=== PATIENT | female | born 1980 | race Caucasian/White ===

== ENCOUNTER → 2017-12-26 15:49 | Outpatient (CLI) | payer OTHER, SELFPAY | PROVIDERS: Family Provider Nurse Practitioner; PCP Internal Medicine; Visit Provider Internal Medicine | DX: B35.1 Tinea unguium (principal) | CPT/HCPCS: 87077; 87102 ==

== ENCOUNTER → 2017-12-29 09:35 | Outpatient (CLI) | payer OTHER, SELFPAY ==
[2017-12-29 10:27] LABS: Add Manual Diff / Slide Review NO; Basophils Percent Auto 0.4 % (0-2); Eosinophils Percent Auto 1.9 % (2-4); Hematocrit 39.3 % (36-46); Hemoglobin 13.4 g/dL (12.0-16.0); Lymphocytes Percent Auto 41.5 % (25-40); Mean Corpuscular HGB Conc 34.2 % (30-36); Mean Corpuscular Volume 96.4 fL (80-100); Monocytes Percent Auto 6.4 % (3-14); Neutrophils Absolute Auto 2500 /uL (3000-5900); Neutrophils Percent Auto 49.8 % (50-75); Platelet Count 236 X10^3/uL (150-400); Red Blood Cell Count 4.07 X10^6/uL (4.0-5.2); Red Cell Distribution Width 12.8 % (11.6-14.8)
[2017-12-29 10:47] LABS: Alanine Aminotransferase 26 IU/L (9-52); Albumin 4.5 g/dL (3.5-5.0); Albumin Globulin Ratio 1.7 (1.0-2.8); Alkaline Phosphatase 44 U/L (38-126); Aspartate Aminotransferase 20 IU/L (14-36); BUN Creatinine Ratio 21.7 (6-22); Bilirubin Total 0.5 mg/dL (0.2-1.3); Blood Urea Nitrogen 13 mg/dL (7-17); Calcium 9.7 mg/dL (8.4-10.2); Carbon Dioxide 29 mmol/L (22-32); Chloride 106 mmol/L (98-107); Cholesterol 209 mg/dL (140-199); Estimated Glomerular Filt Rate > 60.0 mL/min (>60); Globulin 2.7 g/dL (1.7-4.1); Glucose 83 mg/dL (70-100); HDL Cholesterol 75 mg/dL (40-60); HEMOLYSIS < 15 (0-50); LDL Cholesterol Calculated 120 mg/dL (<100); Potassium 4.4 mmol/L (3.4-5.1); Sodium 143 mmol/L (137-145); Total Protein 7.2 g/dL (6.3-8.2); Triglycerides 68 mg/dL (35-150)
[2017-12-29 11:13] LABS: Thyroid Stimulating Hormone 0.66 uIU/mL (0.47-4.68)
== END ==
PROVIDERS: PCP Internal Medicine; Visit Provider Internal Medicine
DX: F41.9 Anxiety disorder, unspecified (principal); R25.1 Tremor, unspecified; Z82.49 Family history of ischemic heart disease and other diseases of the circulatory system
CPT/HCPCS: 36415; 80053; 80061; 84443; 85025

== ENCOUNTER → 2018-01-16 13:44 | Outpatient (REF) | payer OTHER, SELFPAY | LOC: LAB 13:44 | PROVIDERS: Family Provider Nurse Practitioner; PCP Internal Medicine; Visit Provider Family Medicine | DX: Z53.9 Procedure and treatment not carried out, unspecified reason (principal) ==

== ENCOUNTER → 2018-01-22 13:43 | Outpatient (REF) | payer OTHER, SELFPAY | LOC: LAB 13:43 | PROVIDERS: Family Provider Nurse Practitioner; PCP Internal Medicine; Visit Provider Internal Medicine | DX: B49 Unspecified mycosis (principal) ==

== ENCOUNTER → 2018-04-05 11:42 | Outpatient (CLI) | payer OTHER, SELFPAY ==
[2018-04-05 12:51] LABS: Alanine Aminotransferase 25 IU/L (9-52); Albumin 4.5 g/dL (3.5-5.0); Albumin Globulin Ratio 1.7 (1.0-2.8); Alkaline Phosphatase 45 U/L (38-126); Aspartate Aminotransferase 20 IU/L (14-36); Bilirubin Total 0.5 mg/dL (0.2-1.3); Bilirubin Unconjugated 0.4 mg/dL (0.0-1.1); Globulin 2.6 g/dL (1.7-4.1); HEMOLYSIS < 15 (0-50); Total Protein 7.1 g/dL (6.3-8.2)
== END ==
PROVIDERS: PCP Internal Medicine; Visit Provider Internal Medicine
DX: Z79.899 Other long term (current) drug therapy (principal)
CPT/HCPCS: 36415; 80076

== ENCOUNTER → 2018-05-10 12:51 | Outpatient (CLI) | payer OTHER, SELFPAY ==
[2018-05-10 14:01] LABS: Alanine Aminotransferase 26 IU/L (9-52); Albumin 4.5 g/dL (3.5-5.0); Albumin Globulin Ratio 1.6 (1.0-2.8); Alkaline Phosphatase 52 U/L (38-126); Aspartate Aminotransferase 19 IU/L (14-36); Bilirubin Total 0.3 mg/dL (0.2-1.3); Bilirubin Unconjugated 0.1 mg/dL (0.0-1.1); Globulin 2.8 g/dL (1.7-4.1); HEMOLYSIS < 15 (0-50); Total Protein 7.3 g/dL (6.3-8.2)
== END ==
PROVIDERS: PCP Internal Medicine; Visit Provider Internal Medicine
DX: Z79.899 Other long term (current) drug therapy (principal)
CPT/HCPCS: 36415; 80076

== ENCOUNTER → 2019-07-20 09:03 | Outpatient (CLI) | payer OTHER, SELFPAY ==
[2019-07-22 14:36] LABS: COVID19 Sendout Not Detected (Not Detected)
== END ==
PROVIDERS: PCP Student in an Organized Health Care Education/Training Program; Visit Provider Physician Assistant
DX: R05 Cough (principal)
CPT/HCPCS: 87635

== ENCOUNTER → 2020-11-24 07:39 | Outpatient (CLI) | payer OTHER, MEDICAID, SELFPAY ==
--- NOTE | 2020-11-24 07:40 | DI.NM.S_ITS ---
PROCEDURE: NM GASTRIC EMPTYING STUDY RADIOPHARMACEUTICAL: 1 mCi Tc-99m sulfur colloid in an egg sandwich. INDICATIONS: Ongoing vomiting with food TECHNIQUE: A Tc-99m labeled sulfur colloid labeled egg sandwich or oatmeal was served to the patient. Anterior and posterior planar images of the abdomen were obtained at 0 minutes and 30 minutes, then at hourly intervals up to 4 hours. The patient was upright and ambulating during the interval. COMPARISON: None. FINDINGS: The stomach has normal size, morphology, and position. There is normal emptying of solid gastric contents from the stomach by visual inspection. No gastroesophageal reflux is visualized. The percentage of tracer retained at specific time points are as follows: Time point Percent gastric retention Normal range 30 minutes 71.2% 70% or more 1 hour 41.5% 30% to 90% 2 hours 14% 60% or less 3 hours 2.4% 30% or less 4 hours - 10% or less IMPRESSION: Normal gastric emptying study. Dictated by: Katerine Eckert M.D. on 11/24/2020 at 13:15 Approved by: Katerine Eckert M.D. on 11/25/2020 at 17:51
== END ==
PROVIDERS: PCP Student in an Organized Health Care Education/Training Program; Referring Provider Student in an Organized Health Care Education/Training Program; Visit Provider Student in an Organized Health Care Education/Training Program
DX: R11.10 Vomiting, unspecified (principal)
CPT/HCPCS: 78264; A9541

== ENCOUNTER → 2020-11-25 07:51 | Outpatient (CLI) | payer OTHER, MEDICAID, SELFPAY ==
[2020-11-25 09:02] LABS: Alanine Aminotransferase 45 IU/L (<35); Albumin 4.3 g/dL (3.5-5.0); Albumin Globulin Ratio 1.7 (1.0-2.8); Alkaline Phosphatase 53 U/L (38-126); Aspartate Aminotransferase 55 IU/L (14-36); Bilirubin Total 0.2 mg/dL (0.2-1.3); Blood Urea Nitrogen 7 mg/dL (7-17); Carbon Dioxide 27 mmol/L (22-32); Chloride 109 mmol/L (98-107); Estimated Glomerular Filt Rate > 60.0 mL/min (>60); Globulin 2.6 g/dL (1.7-4.1); Glucose 79 mg/dL (70-100); HEMOLYSIS < 15 (0-50); Potassium 4.4 mmol/L (3.4-5.1); Sodium 139 mmol/L (137-145); Total Protein 6.9 g/dL (6.3-8.2)
[2020-11-25 09:26] LABS: Cortisol AM (Before 10AM) 9.41 ug/dL (4.46-22.7)
[2020-11-25 09:27] LABS: TSH w/ Reflex to FT4 0.79 uIU/mL (0.47-4.68)
== END ==
PROVIDERS: PCP Student in an Organized Health Care Education/Training Program; Referring Provider Student in an Organized Health Care Education/Training Program; Visit Provider Student in an Organized Health Care Education/Training Program
DX: R11.10 Vomiting, unspecified (principal)
CPT/HCPCS: 36415; 80053; 82533; 84443

== ENCOUNTER → 2020-12-04 11:02 | Outpatient (CLI) | payer OTHER, MEDICAID, SELFPAY ==
--- NOTE | 2020-12-04 | DI.RAD.S_ITS ---
PROCEDURE: FL UPPER GI SMALL BOWEL INDICATIONS: VOMITING COMPARISON: None. FINDINGS: KUB: Preprocedural roll repairer film shows a normal bowel gas pattern. No suspicious abdominal calcifications. Visualized solid organ contours appear normal in size. No suspicious bony abnormalities. Esophagus: Air-contrast views demonstrate a normal mucosal pattern. On single-contrast views, there is normal peristalsis. No fixed strictures, extrinsic mass effects, or diverticula. No hiatal hernias or elicited gastroesophageal reflux. Stomach: The gastric lumen is normally distensible, and has normal rugal fold thickness. No mucosal masses or ulcers. The pylorus and duodenal bulb have a normal morphology. Small bowel: Duodenal folds appear normal in thickness. There is normal transit time of barium through the small intestine. Small bowel loops appear normal in caliber throughout. Jejunal and ileal folds are smooth and normal in thickness. No strictures, intraluminal masses, or extrinsic mass effects. The terminal ileum is identified and appears normal. Contrast material reaches the colon by the 25 minutes time point. IMPRESSION: Normal examination as above. Dictated by: Vito Farooq M.D. on 12/07/2020 at 11:56 Approved by: Vito Farooq M.D. on 12/07/2020 at 11:58
[2020-12-04 12:26] LABS: Lipase 29 U/L (23-300)
[2020-12-04 12:32] LABS: Erythrocyte Sedimentation Rate 9 MM/HR (0-20)
[2020-12-05 06:11] LABS: HBsAg Screen Negative (Negative); Hepatitis A Antibody IgM Negative (Negative); Hepatitis B Core Antibody IgM Negative (Negative); Hepatitis C Antibody <0.1 s/co ratio (0.0-0.9)
== END ==
PROVIDERS: PCP Student in an Organized Health Care Education/Training Program; Referring Provider Student in an Organized Health Care Education/Training Program; Visit Provider Student in an Organized Health Care Education/Training Program
DX: R11.15 Cyclical vomiting syndrome unrelated to migraine (principal); R79.89 Other specified abnormal findings of blood chemistry
CPT/HCPCS: 36415; 74240; 74248; 80074; 83690; 85651

== ENCOUNTER 2021-02-28 08:16 | Emergency (ER) | payer OTHER, MEDICAID, SELFPAY ==
[2021-02-28 08:41] VITALS: BP 117/69; PULSE 78; RESP 18; TEMP 36.6; O2SAT 100; BMI 24.7
--- NOTE | 2021-02-28 08:47 | ED_ITS ---
HPI - Abdominal Pain General Chief Complaint: Abdominal Pain Stated Complaint: Lower Rt abd pain Time Seen by Provider: 02/28/21 08:36 Source: patient Mode of arrival: Ambulatory Limitations: no limitations History of Present Illness HPI narrative: Patient is a 40-year-old female who has no past medical history has been having some ongoing stomach issues for a while and being worked up as an outpatient. Today she presents with right lower quadrant pain off and on for about 1 month. She says it is really only which with intercourse. She has been previously been abstinent and just started having intercourse within the last 1 month. She says every time it is painful in her right lower quadrant this morning it was extremely painful and afterward she threw. The pain has subsided now. She has also had some random intermittent mild spotting. She has a history of a tubal ligation is not currently using control. She has no vaginal discharge. She had a recent Pap smear and cultures taken by primary care. She denies any fever or chills.. Related Data Home Medications Medication Instructions Recorded Confirmed pantoprazole 40 mg tablet,delayed ea PO 02/26/21 02/26/21 release Allergies Allergy/AdvReac Type Severity Reaction Status Date / Time No Known Drug Allergies Allergy Verified 02/26/21 08:51 Review of Systems Review of Systems Narrative: GENERAL: Denies chills, fatigue, malaise, fever, sweats, travel HEENT: Denies sinus pain, ear pain, sore throat, difficulty swallowing, neck pain RESPIRATORY: Denies dyspnea, cough, wheezing, hemoptysis, sputum. CARDIOVASCULAR: Denies chest pain, palpitations, orthopnea, edema GASTROINTESTINAL: See HPI : Denies dysuria, frequency, incontinence, hematuria, urinary retention, flank pain. MUSCULOSKELETAL: Denies weakness, joint pain, or bony pain SKIN: No rash, no erythema, no pruritus NEUROLOGIC: Denies weakness, dizziness, headache, numbness, change in speech, confusion PSYCHIATRIC: No concerning psychosocial issues. 12 point review of systems is negative except for those stated above and HPI Patient History Medical History (Updated 02/28/21 @ 11:17 by Elizabeth Burrows DO) Breast pain Cervical cancer screening Screening examination for STD (sexually transmitted disease) Screening for HPV (human papillomavirus) Surgical History Anesthesia Status post dilation and curettage (~1997) Status post tubal ligation (01/26/09) Social History Smoking Status: Current every day smoker Smoking Status: Current every day smoker tobacco type: cigarettes alcohol intake frequency: holidays/special occasions only Substance Use Type: marijuana Exam Initial Vital Signs Initial Vital Signs: Vital Signs Temperature 97.9 F 02/28/21 08:41 Pulse Rate 78 02/28/21 08:41 Respiratory Rate 18 02/28/21 08:41 Blood Pressure 117/69 02/28/21 08:41 Pulse Oximetry 100 02/28/21 08:41 GENERAL: Well-appearing, well-nourished and in no acute distress. HEENT: Head atraumatic,EOMI, pupils reactive, face symmetric, moist mucous membranes CARDIOVASCULAR: Regular rate and rhythm without murmurs, rubs or gallops. RESPIRATORY: Breath sounds equal bilaterally, no wheezes rales or rhonchi. ABDOMEN: Soft, mild right suprapubic pain no rebound tenderness. Left-sided pain. Normoactive bowel sounds all 4 quadrants. No guarding or rebound. : No CVA tenderness EXTREMITIES: Normal range of motion, no clubbing or edema. Neurovascularly intact NEUROLOGICAL: Alert and oriented x4.Normal gait and speech. SKIN: Warm, dry, no laceration, no petechiae, no rashes or lesions. Course Orders Ordered: ED Orders 02/28/21 09:38 Complete Blood Count AUTO DIFF Stat Comprehensive Metabolic Panel Stat Lipase Stat Vital Signs Vital signs: Vital Signs - 8 hr 02/28/21 11:25 Pulse Rate 56 L Respiratory Rate 16 Blood Pressure 98/56 L Pulse Oximetry 99 MDM - Abdominal Pain Lab Data Result diagrams: 02/28/21 09:38 02/28/21 09:38 Labs: Lab Results 02/28/21 02/28/21 Range/Units 09:38 09:38 WBC 6.1 (4.5-11.0) X10^3/uL RBC 4.22 (4.0-5.2) X10^6/uL Hgb 13.4 (12.0-16.0) g/dL Hct 40.1 (36-46) % MCV 95.1 (80-100) fL MCH 31.8 (26-34) PG MCHC 33.4 (30-36) % RDW 13.8 (11.6-14.8) % Plt Count 192 (150-400) X10^3/uL Neut % (Auto) 58.9 (50-75) % Lymph % (Auto) 33.1 (25-40) % [place] % (Auto) 6.8 (3-14) % Eos % (Auto) 0.8 L (2-4) % Baso % (Auto) 0.4 (0-2) % Neut # (Auto) 3600 (8321-3759) /uL Lymph # (Auto) 2000 (5056-2951) /uL [place] # (Auto) 400 (0-900) /uL Eos # (Auto) 0 (0-450) /uL Baso # (Auto) 0 (0-100) /uL Sodium 139 (137-145) mmol/L Potassium 4.4 (3.4-5.1) mmol/L Chloride 106 (98-107) mmol/L Carbon Dioxide 26 (22-32) mmol/L BUN 9 (7-17) mg/dL Creatinine 0.64 (0.52-1.04) mg/dL Estimated GFR > 60.0 (>60) mL/min BUN/Creatinine Ratio 14.1 (6-22) Glucose 86 (70-100) mg/dL Calcium 9.3 (8.4-10.2) mg/dL Total Bilirubin 0.5 (0.2-1.3) mg/dL AST 33 (14-36) IU/L ALT 17 (<35) IU/L Alkaline Phosphatase 49 (38-126) U/L Total Protein 6.9 (6.3-8.2) g/dL Albumin 4.3 (3.5-5.0) g/dL Globulin 2.6 (1.7-4.1) g/dL Albumin/Globulin Ratio 1.7 (1.0-2.8) Lipase 44 (23-300) U/L Point of care testing: Point of Care Testing Test Results Negative Urine Dip Bedside Urine Glucose Negative Bedside Urine Bilirubin - Negative Bedside Urine Ketone - Negative Urine Specific [place] 1.015 Bedside Urine Occult Blood - Negative Bedside Urine pH 7.5 Bedside Urine Protein +/- 15 Bedside Urine Urobilinogen - Negative Bedside Urine Nitrite - Negative Bedside Urine Leukocytes - Negative Esterase Imaging Data CT scan - abdomen/pelvis: Radiologist's Impression: PROCEDURE:? CT ABDOMEN PELVIS W CON ? INDICATIONS:? right sided pain ? TECHNIQUE:? After the administration of oral and IV contrast, axial sections were acquired from the lung bases to the pubic symphysis.? Coronal and sagittal reformats were performed.? For radiation dose reduction, the following was used:? automated exposure control, adjustment of mA and/or kV according to patient size. ? COMPARISON:? None. ? FINDINGS:? Image quality:? Excellent.? ? Lung bases:? There is mild left basilar atelectasis.? ? Heart:? No significant findings. ? ? ABDOMEN: Liver:? Unremarkable.? ? Gallbladder:? Unremarkable.? ? Biliary ducts:? Unremarkable.? ? Pancreas:? Unremarkable.? ? Spleen:? Unremarkable.? ? Adrenal Glands:? Unremarkable.? ? Kidneys and Ureters:? Unremarkable.? ? ? Stomach and Bowel:? Stomach, small bowel loops, and colon are normal in caliber and wall thickness.? The appendix is normal in appearance.? Peritoneum:? There is a small amount of free fluid in the pelvis which appears within physiologic limits.? No free air.? ? Ventral Wall: ? No hernia.? Abdominal Nodes:? No retroperitoneal or mesenteric adenopathy by size criteria.? Vessels:? Aorta and inferior vena cava are normal in size.? ? PELVIS: Pelvic Organs:? There is a peripherally enhancing cyst in the left ovary measuring to 1.6 cm. Bladder:? Unremarkable.? ? Pelvic Nodes: No enlarged lymph nodes.? Miscellaneous:? There are prominent left parametrial vessels.? No inguinal hernias are seen. ? ? ? Bones:? Unremarkable.? IMPRESSION:? ? 1. No evidence of appendicitis. ? 2. No definite acute intra-abdominal abnormality to correlate with patient's right lower quadrant pain. ? 3. Prominent left parametrial vessels of indeterminate clinical significance.? The findings may reflect pelvic congestion syndrome in the appropriate clinical context. ? 4. Peripherally enhancing left ovarian cyst likely representing a corpus luteal cyst.? ? ? Dictated by: Aamir Diallo M.D. on 02/28/2021 at 10:57 ?? US - [employer]CH[employer]: Radiologist's Impression: PROCEDURE:? US PELVIC COMPLETE ? INDICATIONS:? RIGHT PELVIC PAIN WITH INTERCOURSE ? TECHNIQUE:? Real-time scanning was performed of the pelvic organs, with image documentation.? Additional endovaginal scanning was necessary due to incomplete visualization of the adnexal and endometrial structures by transabdominal scanning.? ? COMPARISON:? None. ? FINDINGS:? ?? Uterus:? Uterus is normal in size at 8.7 x 5.8 cm.? The liver echotexture is within normal level.? The endometrium measures 10 mm in combined thickness.? ? Ovaries:? The right ovary measures 2.7 x 1 point cm. The left ovary measures 2.4 x 1.4 cm and demonstrates a 1.6 x 1.1 x 1 3 cm solid-appearing nodule with peripheral vascularity. ? The ovaries otherwise have a normal sonographic appearance.? No adnexal masses are seen. Normal appearing arterial waveforms are confirmed to each ovary.? ? Other: ? No pathologic free abdominal or pelvic fluid. ? ? IMPRESSION:? A cause of RIGHT-sided pelvic pain is not seen. ? Negative for ovarian torsion.? ? Potential pelvic is hemorrhagic cyst LEFT ovary. If it would be clinically appropriate, a followup pelvic ultrasound could be considered in 6 weeks to assure resolution/ improvement.? Dictated by: Kwame Will M.D. on 02/28/2021 at 9:13 ? ? Approved by: Kwame Will M.D. on 02/28/2021 at 9:15 ? [facility] Narrative Medical decision making narrative: Patient is having ongoing right-sided abdominal pain only with intercourse and intermittent very light spotting. She has already had a pelvic exam STD testing. She denies any heavy menstrual periods. On ultrasound and CT scan do not show any cause of pain for the right side but do show a corpus luteum cyst on the left. Recommend outpatient repeat ultrasound in about 6 weeks Discharge Plan Departure Patient Disposition: Home Clinical Impression: Left ovarian cyst Instructions: DI for Ovarian Cyst Activity Restrictions/Additional Instructions: *You have been diagnosed with left ovarian cyst *What to do: At this time no cause of the right sided pain. The of a small left ovarian cyst. Recommend outpatient repeat ultrasound in about 6-8 weeks. May still require more outpatient testing. Workup in the emergency department is overall reassuring *Continue to take medications as directed Motrin 800 mg every 8 hours if needed for pain *Follow up with your primary care provider in 2-3 days *Return to ER if you should have increasing pain, heavy vaginal bleeding more than 2 pads in 1 hour, persistent vomiting or any new, worsening or concerning symptoms Prescriptions: No Action pantoprazole 40 mg tablet,delayed release (DR/EC) PO RF: 0 Referrals: Jonathan Tony MD [Primary Care Provider] -
--- NOTE | 2021-02-28 08:53 | DI.US.S_ITS ---
PROCEDURE: US PELVIC COMPLETE INDICATIONS: RIGHT PELVIC PAIN WITH INTERCOURSE TECHNIQUE: Real-time scanning was performed of the pelvic organs, with image documentation. Additional endovaginal scanning was necessary due to incomplete visualization of the adnexal and endometrial structures by transabdominal scanning. COMPARISON: None. FINDINGS: Uterus: Uterus is normal in size at 8.7 x 5.8 cm. The liver echotexture is within normal level. The endometrium measures 10 mm in combined thickness. Ovaries: The right ovary measures 2.7 x 1 point cm. The left ovary measures 2.4 x 1.4 cm and demonstrates a 1.6 x 1.1 x 1 3 cm solid-appearing nodule with peripheral vascularity. The ovaries otherwise have a normal sonographic appearance. No adnexal masses are seen. Normal appearing arterial waveforms are confirmed to each ovary. Other: No pathologic free abdominal or pelvic fluid. IMPRESSION: A cause of RIGHT-sided pelvic pain is not seen. Negative for ovarian torsion. Potential pelvic is hemorrhagic cyst LEFT ovary. If it would be clinically appropriate, a followup pelvic ultrasound could be considered in 6 weeks to assure resolution/ improvement. Dictated by: Kwame Will M.D. on 02/28/2021 at 9:13 Approved by: Kwame Will M.D. on 02/28/2021 at 9:15
--- NOTE | 2021-02-28 08:53 | DI.CT.S_ITS ---
PROCEDURE: CT ABDOMEN PELVIS W CON INDICATIONS: right sided pain TECHNIQUE: After the administration of oral and IV contrast, axial sections were acquired from the lung bases to the pubic symphysis. Coronal and sagittal reformats were performed. For radiation dose reduction, the following was used: automated exposure control, adjustment of mA and/or kV according to patient size. COMPARISON: None. FINDINGS: Image quality: Excellent. Lung bases: There is mild left basilar atelectasis. Heart: No significant findings. ABDOMEN: Liver: Unremarkable. Gallbladder: Unremarkable. Biliary ducts: Unremarkable. Pancreas: Unremarkable. Spleen: Unremarkable. Adrenal Glands: Unremarkable. Kidneys and Ureters: Unremarkable. Stomach and Bowel: Stomach, small bowel loops, and colon are normal in caliber and wall thickness. The appendix is normal in appearance. Peritoneum: There is a small amount of free fluid in the pelvis which appears within physiologic limits. No free air. Ventral Wall: No hernia. Abdominal Nodes: No retroperitoneal or mesenteric adenopathy by size criteria. Vessels: Aorta and inferior vena cava are normal in size. PELVIS: Pelvic Organs: There is a peripherally enhancing cyst in the left ovary measuring to 1.6 cm. Bladder: Unremarkable. Pelvic Nodes: No enlarged lymph nodes. Miscellaneous: There are prominent left parametrial vessels. No inguinal hernias are seen. Bones: Unremarkable. IMPRESSION: 1. No evidence of appendicitis. 2. No definite acute intra-abdominal abnormality to correlate with patient's right lower quadrant pain. 3. Prominent left parametrial vessels of indeterminate clinical significance. The findings may reflect pelvic congestion syndrome in the appropriate clinical context. 4. Peripherally enhancing left ovarian cyst likely representing a corpus luteal cyst. Dictated by: Aamir Diallo M.D. on 02/28/2021 at 10:57 Approved by: Aamir Diallo M.D. on 02/28/2021 at 11:05
[2021-02-28 09:47] LABS: Add Manual Diff / Slide Review NO; Basophils Absolute Auto 0 /uL (0-100); Basophils Percent Auto 0.4 % (0-2); Eosinophils Absolute Auto 0 /uL (0-450); Eosinophils Percent Auto 0.8 % (2-4); Hematocrit 40.1 % (36-46); Hemoglobin 13.4 g/dL (12.0-16.0); Lymphocytes Absolute Auto 2000 /uL (1100-4500); Lymphocytes Percent Auto 33.1 % (25-40); Mean Corpuscular HGB Conc 33.4 % (30-36); Mean Corpuscular Hemoglobin 31.8 PG (26-34); Mean Corpuscular Volume 95.1 fL (80-100); Monocytes Absolute Auto 400 /uL (0-900); Monocytes Percent Auto 6.8 % (3-14); Neutrophils Absolute Auto 3600 /uL (1500-7000); Neutrophils Percent Auto 58.9 % (50-75); Platelet Count 192 X10^3/uL (150-400); Red Blood Cell Count 4.22 X10^6/uL (4.0-5.2); Red Cell Distribution Width 13.8 % (11.6-14.8); White Blood Cell Count 6.1 X10^3/uL (4.5-11.0)
[2021-02-28 10:17] LABS: Alanine Aminotransferase 17 IU/L (<35); Albumin 4.3 g/dL (3.5-5.0); Albumin Globulin Ratio 1.7 (1.0-2.8); Alkaline Phosphatase 49 U/L (38-126); Aspartate Aminotransferase 33 IU/L (14-36); BUN Creatinine Ratio 14.1 (6-22); Bilirubin Total 0.5 mg/dL (0.2-1.3); Blood Urea Nitrogen 9 mg/dL (7-17); Calcium 9.3 mg/dL (8.4-10.2); Carbon Dioxide 26 mmol/L (22-32); Chloride 106 mmol/L (98-107); Estimated Glomerular Filt Rate > 60.0 mL/min (>60); Globulin 2.6 g/dL (1.7-4.1); Glucose 86 mg/dL (70-100); HEMOLYSIS < 15 (0-50); Lipase 44 U/L (23-300); Potassium 4.4 mmol/L (3.4-5.1); Sodium 139 mmol/L (137-145); Total Protein 6.9 g/dL (6.3-8.2)
[2021-02-28 11:25] VITALS: BP 98/56; PULSE 56; RESP 16; O2SAT 99
== END 2021-02-28 11:25 | disposition home or self-care (01) ==
PROVIDERS: Emergency Provider Emergency Medicine; PCP Student in an Organized Health Care Education/Training Program
DX: N83.202 Unspecified ovarian cyst, left side (principal); R10.31 Right lower quadrant pain
CPT/HCPCS: 36415; 74177; 76830; 76856; 80053; 81003; 81025; 83690; 85025; 99282; 99284

== ENCOUNTER → 2021-03-10 09:51 | Outpatient (CLI) | payer OTHER, MEDICAID, SELFPAY ==
[2021-03-11 04:10] LABS: HBsAg Screen Negative (Negative); HSV 2 IGG AB < 0.91 index (0.00-0.90); HSV1IGG 4.96 index (0.00-0.90); Hepatitis A Antibody IgM Negative (Negative); Hepatitis B Core Antibody IgM Negative (Negative); Hepatitis C Antibody <0.1 s/co ratio (0.0-0.9)
[2021-03-11 08:30] LABS: RPR Screen Non Reactive (Non Reactive)
[2021-03-11 17:40] LABS: HIV 1 & 2 Ab/Ag 4th Gen Combo NEGATIVE (NEGATIVE)
[2021-03-11 19:52] LABS: HSV I/II IgM 1.26 Ratio (0.00-0.90)
== END ==
PROVIDERS: PCP Student in an Organized Health Care Education/Training Program; Referring Provider Registered Nurse; Visit Provider Registered Nurse
DX: A64 Unspecified sexually transmitted disease (principal)
CPT/HCPCS: 36415; 80074; 86592; 86694; 86695; 86696; 87389

== ENCOUNTER → 2021-04-19 07:21 | Outpatient (CLI) | payer OTHER, MEDICAID, SELFPAY ==
--- NOTE | 2021-04-19 07:22 | DI.US.S_ITS ---
PROCEDURE: US PELVIC COMPLETE INDICATIONS: FOLLOW-UP LEFT OVARIAN CYST TECHNIQUE: Real-time scanning was performed of the pelvic organs, with image documentation. Additional endovaginal scanning was necessary due to incomplete visualization of the adnexal and endometrial structures by transabdominal scanning. COMPARISON: [facility], [place], US PELVIC COMPLETE, 02/28/2021, 9:19. FINDINGS: Uterus: Uterus is anterior to and normal in size at 4.4 x 6.1 x 8.0 cm. The myometrium is homogeneous. The endometrium measures 10 mm combined thickness. Ovaries: The right ovary measures 2.2 x 2.3 x 4.0 cm. The left ovary measures 1.9 x 2.5 x 2.7 cm. Previously seen suspected hemorrhagic cyst in the left ovary has resolved. There is a new complex vascular cyst in the right ovary measuring 1.8 x 2.0 x 2.6 cm. Other: No pathologic free abdominal or pelvic fluid. IMPRESSION: Resolution of previously seen left ovarian cyst. New complex right ovarian cyst with peripheral vascularity is likely a hemorrhagic cyst also. We strive to produce accurate, complete, and clear reports of imaging services. To assist us in improving patient care, this report was composed using standard report templates and voice recognition software. Therefore, it may contain abnormal punctuation, insertions and/or omissions. Occasional wrong-word or sound-alike substitutions may occur. Though we review the report and make efforts to correct it, we do recommend that the report be read carefully in proper context to recognize any text inaccuracies. Dictated by: Brian Arana M.D. on 04/19/2021 at 8:13 Approved by: Brian Arana M.D. on 04/19/2021 at 8:18
== END ==
PROVIDERS: PCP Student in an Organized Health Care Education/Training Program; Referring Provider Student in an Organized Health Care Education/Training Program; Visit Provider Student in an Organized Health Care Education/Training Program
DX: N83.202 Unspecified ovarian cyst, left side (principal); N83.291 Other ovarian cyst, right side
CPT/HCPCS: 76856

== ENCOUNTER 2022-01-19 17:54 | Emergency (ER) | payer OTHER, MEDICAID, SELFPAY ==
[2022-01-19 18:03] VITALS: BP 117/70; PULSE 70; RESP 18; TEMP 36.8; O2SAT 99; BMI 24.7
[2022-01-19] MEDS: TRIMETH/SULFA 160/800 (DS) TABLET 1 TAB PO (19:04)
--- NOTE | 2022-01-19 19:14 | ED.UPPEXIN ---
HPI - Extremity Injury (Upper) <ANIBAL Schulz - Last Filed: 01/19/22 20:27> General Chief Complaint: Extremity Injury, Upper Stated Complaint: rt hand infection Time Seen by Provider: 01/19/22 18:54 Source: patient Mode of arrival: Ambulatory History of Present Illness HPI narrative: This is a 41-year-old female presents to the emergency department for 3 wounds on the dorsum of her right hand which she states started about 4 days ago with progressive erythema and concern for infection. She denies any history of this in the past, denies any known CT injury or cat bite but states that this has happened to her in the past. She denies any range of motion deficit, states that the dorsum of her right hand is painful, she does not know where the 2 small wounds on the lateral aspect of her hand came from but states the 1 over her MCP joint of her thumb has been there for 4 days and is tender surrounding it. Related Data Home Medications Medication Instructions Recorded Confirmed pantoprazole 40 mg tablet,delayed ea PO 02/26/21 02/26/21 release Previous Rx's Medication Instructions Recorded mupirocin 2 % topical ointment 1 applic topical BID #15 grams 01/19/22 sulfamethoxazole 800 1 tab PO BID 7 days #14 tabs 01/19/22 mg-trimethoprim 160 mg tablet (Bactrim DS) Allergies Allergy/AdvReac Type Severity Reaction Status Date / Time No Known Drug Allergies Allergy Verified 01/19/22 18:03 Review of Systems <ANIBAL Schulz - Last Filed: 01/19/22 20:27> Review of Systems Narrative: Review of systems is negative for acute abnormalities unless otherwise noted in HPI Patient History <ANIBAL Schulz - Last Filed: 01/19/22 20:27> Medical History Breast pain Cervical cancer screening Screening examination for STD (sexually transmitted disease) Screening for HPV (human papillomavirus) Surgical History Anesthesia Status post dilation and curettage (~1997) Status post tubal ligation (01/26/09) Social History Smoking Status: Current every day smoker Smoking Status: Current every day smoker tobacco type: cigarettes alcohol intake frequency: holidays/special occasions only Substance Use Type: marijuana Exam <ANIBAL Schulz - Last Filed: 01/19/22 20:27> Narrative Exam Narrative: Reviewed vitals signs and nursing notes. General: cooperative, comfortable, in no acute distress, well groomed, afebrile, bilateral hand tremor which is normal baseline HEENT: symmetrical facial expressions, moist mucous membranes, EOMI MSK:moves all extremities, neurovascularly intact, no weakness, normal tone Skin: brisk capillary refill, without pallor, dorsum of right hand with erythema which extends mildly up just past the wrist, no clear demarcation or bright red erythema, mildly pink with 2 wounds 1 over the lateral distal 5th metacarpal and distal 3rd metacarpal, no range of motion deficits, flexion extension intact at all fingers and hand with wrist flexion extension intact as well. Mild discharge coming from to wounds Neuro: normal speech and cognition, A&O x3, ambulatory, clear speech Psych: mental status is grossly normal, congruent mood, normal affect, pleasant and cooperative Initial Vital Signs Initial Vital Signs: Vital Signs Temperature 98.2 F 01/19/22 18:03 Pulse Rate 70 01/19/22 18:03 Respiratory Rate 18 01/19/22 18:03 Blood Pressure 117/70 01/19/22 18:03 Pulse Oximetry 99 01/19/22 18:03 Oxygen Delivery Method 01/19/22 18:03 <Gabriel Batista DO - Last Filed: 01/20/22 14:32> Initial Vital Signs Initial Vital Signs: Vital Signs Temperature 98.2 F 01/19/22 18:03 Pulse Rate 70 01/19/22 18:03 Respiratory Rate 18 01/19/22 18:03 Blood Pressure 117/70 01/19/22 18:03 Pulse Oximetry 99 01/19/22 18:03 Oxygen Delivery Method 01/19/22 18:03 Course <ANIBAL Schulz - Last Filed: 01/19/22 20:27> Orders Ordered: Discontinued Medications Trimethoprim/Sulfamethoxazole (Trimeth/Sulfa 160/800 (Ds) Tablet) 1 tab PO NOW ONE Stop: 01/19/22 19:02 Last Admin: 01/19/22 19:04 Dose: 1 tab Documented By: ARINA Vital Signs Vital signs: Vital Signs - 8 hr 01/19/22 18:03 Temperature 98.2 F Pulse Rate 70 Respiratory Rate 18 Blood Pressure 117/70 Pulse Oximetry 99 Oxygen Delivery Method Room Air <Gabriel Batista DO - Last Filed: 01/20/22 14:32> Orders Ordered: Discontinued Medications Trimethoprim/Sulfamethoxazole (Trimeth/Sulfa 160/800 (Ds) Tablet) 1 tab PO NOW ONE Stop: 01/19/22 19:02 Last Admin: 01/19/22 19:04 Dose: 1 tab Documented By: ARINA Vital Signs Vital signs: Vital Signs - 8 hr 01/19/22 18:03 Temperature 98.2 F Pulse Rate 70 Respiratory Rate 18 Blood Pressure 117/70 Pulse Oximetry 99 Oxygen Delivery Method Room Air MDM - Extremity Injury (Upper) <Allison Nielsen [facility] - Last Filed: 01/19/22 20:27> MDM Narrative Medical decision making narrative: This is a 41-year-old female who presents to the emergency department with unknown trauma to the right hand and has had 4 days of worsening right dorsum hand pain with mild erythema and 3 wounds. It appears to be like cellulitis without abscess. She does not have any range of motion deficit, there is no significant demarcation and her flexion extension is intact at all joints of her fingers, I do not think that this is tenosynovitis at this time. She denies any known CT injury but has a history of cat scratch fever. She was treated today with Bactrim double-strength, encouraged to apply mupirocin ointment to all of the open wounds on the dorsum of her hand and to return if this worsens after 24 hours of antibiotics. I encouraged to use Tylenol and ibuprofen as needed for her pain, cool compresses as needed and to follow-up if this gets any worse. She states understanding. Patient is appropriate and amenable to discharge home. Vital signs are stable on repeat examination is unremarkable. Patient has been informed of results. Patient has been given strict return to ER precautions for any new or worsening symptoms. Patient understands to follow up closely with outpatient providers as instructed. Patient understands plan and agrees to discharge home. All questions and concerns answered at this time. Discharge Plan Departure Patient Disposition: Home Clinical Impression: Cellulitis and abscess of hand Instructions: Cellulitis Activity Restrictions/Additional Instructions: *You have been diagnosed with a skin infection called cellulitis, they are 2 small abscesses on your hand as well but those look like they are starting to drain, please put mupirocin ointment on them and covered with a Band-Aid, take this antibiotic twice a day for the next 7 days, please come back if you have any worsening of your hand, fever, or chills. This infection should start to get better over the next 24 hours, you may take ibuprofen and Tylenol as needed for your pain, I hope that you start feeling better soon, please return for any worsening. *What to do: *Please continue to take your regular medications as directed. [ x] New medication prescriptions sent to your pharmacy: [ [facility]] [ ] New medication written as a paper prescription [ ] No new medications given *Please follow up with your primary care provider in 2-3 days, call for an appointment. Let them know you were seen in the Emergency Department and that we asked that you be seen for follow-up. We will electronically transmit a record of today's note if your PCP is in our system *If you do not have a primary care provider please contact [phone] to establish care with one of [facility] primary care providers. *Return to Emergency Department if you should have any new, worsening, or concerning symptoms, such as [fever greater than 101F, chills, worsening pain, persistent vomiting or other bothersome symptoms]. Prescriptions: New mupirocin 2 % ointment 1 applic topical BID Qty: 15 0RF sulfamethoxazole-trimethoprim [Bactrim DS] 800-160 mg tablet 1 tab PO BID 7 Days Qty: 14 0RF No Action pantoprazole 40 mg tablet,delayed release (DR/EC) PO Referrals: Jonathan Tony MD [Primary Care Provider] - Visit Report Forms: Patient Portal/API <Gabriel Batista DO - Last Filed: 01/20/22 14:32> [facility] ED Attending Reneeature Attestation: I was immediately available in the department for consultation. This documentation has been reviewed and I agree with assessment and plan. Supervised by Gabriel Batista DO
== END 2022-01-19 19:17 | disposition home or self-care (01) ==
PROVIDERS: Emergency Provider Nurse Practitioner Critical Care Medicine; PCP Student in an Organized Health Care Education/Training Program
DX: L03.113 Cellulitis of right upper limb (principal)
CPT/HCPCS: 99283

== ENCOUNTER 2022-04-17 02:10 | Emergency (ER) | payer OTHER, MEDICAID, SELFPAY ==
[2022-04-17 02:21] VITALS: BP 107/74; PULSE 77; RESP 16; TEMP 36.6; O2SAT 100; BMI 23.9
--- NOTE | 2022-04-17 02:42 | ED.HA ---
HPI - Headache General Chief Complaint: Headache Stated Complaint: HEADACHE/DIZZY/RT. SHOULDER PAIN Time Seen by Provider: 04/17/22 02:24 Mode of arrival: Ambulatory History of Present Illness HPI Narrative: Otherwise healthy 41-year-old woman presents with right shoulder pain. This has been present intermittently for an extended period of time and she has been to physical therapy for this before. Over the last 24 hours she is noticing increasing pain to the point that she was unable to sleep tonight. When further questioned she notes that she is having some neck pain and compression and rotation of the neck can reproduce her shoulder pain. She has pain with abduction and external rotation she also has tenderness along the medial epicondyle and decreased sensation in the middle ring and small finger on the right side. She describes no fevers, cough, chills. There is no history of IV drug use or recent trauma. Related Data Home Medications Medication Instructions Recorded Confirmed pantoprazole 40 mg tablet,delayed ea PO 02/26/21 02/16/22 release Allergies Allergy/AdvReac Type Severity Reaction Status Date / Time No Known Drug Allergies Allergy Verified 02/16/22 10:39 Review of Systems Review of Systems Narrative: Remainder of complete review of systems is otherwise unremarkable except for that included in the HPI. Patient History Medical History Herpes simplex type 1 infection Onychomycosis Tremor of both hands Surgical History Anesthesia Status post dilation and curettage (~1997) Status post tubal ligation (01/26/09) Social History Smoking Status: Current every day smoker Smoking Status: Current every day smoker tobacco type: cigarettes alcohol intake frequency: holidays/special occasions only Substance Use Type: marijuana Exam Initial Vital Signs Initial Vital Signs: Vital Signs Temperature 97.9 F 04/17/22 02:21 Pulse Rate 77 04/17/22 02:21 Respiratory Rate 16 04/17/22 02:21 Blood Pressure 107/74 04/17/22 02:21 Pulse Oximetry 100 04/17/22 02:21 Oxygen Delivery Method 04/17/22 02:21 General: Alert appropriate in no acute distress Neck: Minor paraspinous tenderness bilaterally to palpation. With axial compression rotation and lateral side bending pain can be reproduced into the shoulder. Respiratory: Able to speak in full sentences, no obvious respiratory distress Skin: No obvious rashes, warm and dry Neurologic: Grossly intact no obvious asymmetries or abnormalities aside from the slight decreased sensation in middle ring and small finger on the left side Psych: appropriate insight and affect, cooperative Extremity: Mild fullness along the anterior deltoid area without fluctuance, warmth or redness. She is slightly tender but not the exquisite tenderness 1 would expect with a septic joint. She also has some tenderness along both medial and lateral epicondyles. Elbow and wrist both have full unrestricted and on painful range of motion. Course Orders Ordered: ED Orders 04/17/22 02:35 Covid-19 + FLU A/B + RSV - PCR Stat Vital Signs Vital signs: Vital Signs - 8 hr 04/17/22 02:21 Temperature 97.9 F Pulse Rate 77 Respiratory Rate 16 Blood Pressure 107/74 Pulse Oximetry 100 Oxygen Delivery Method Room Air MDM - Headache MDM Narrative Medical decision making narrative: 41-year-old woman presents with neck shoulder elbow and hand pain. I suspect that she has an old right shoulder injury and a newer right cervical radiculopathy. She may also have a component of medial epicondylitis. I do not suspect septic joint, significant trauma, rotator cuff tear. For the time being will place her on 10 mg of Decadron for 3 days, ibuprofen and Tylenol to help pain control. Give her a sling to use for a brief period of time with instructions to make sure that she is doing gentle shoulder circles regularly to avoid frozen shoulder. Will ask her to follow-up with her primary care physician, she may benefit from additional physical therapy but she may also benefit from orthopedic consultation. It is still unclear whether there are multiple orthopedic issues or whether she has radicular neck pain simply exacerbating her chronic shoulder issue. I suspect the neck and shoulder pain are causing the mild recurrent headaches of which she complains. In the absence of any trauma, I do not think that x-rays are going to prove beneficial. At some point, MRI imaging of the neck and or shoulder may be appropriate. All of this is reviewed with the patient, she understands and will follow-up with her outpatient doctors. Discharge Plan Departure Patient Disposition: Home Clinical Impression: Radicular pain in right arm Ulnar nerve abnormality Qualifiers: Laterality: right Qualified Code(s): G56.21 - Lesion of ulnar nerve, right upper limb Medial epicondylitis Qualifiers: Laterality: right Qualified Code(s): M77.01 - Medial epicondylitis, right elbow Nontraumatic shoulder pain Qualifiers: Laterality: right Qualified Code(s): M25.511 - Pain in right shoulder Instructions: DI for Cervical Radiculopathy, DI for Medial Epicondylitis, DI for Shoulder Pain Activity Restrictions/Additional Instructions: Thank you for coming in today It is obvious that you are hurting. Not quite sure if you have multiple issues or if all of this is stemming from your neck with a nerve that is pinched and radiating down into your arm. I am going to suggest 3 days of Decadron, a steroid to reduce inflammation and see how this influences your pain. Using 400 mg of ibuprofen (2 [id number] pills) and 1 Tylenol every 6 hours can be very helpful in controlling pain. I am also going to give you a sling. It is important that a couple of times a day you allow your arm to hang down freely and do some gentle circles to prevent the shoulder joint from freezing up. You will need to see your primary care doctor and might need to consider seeing an orthopedic surgeon for more definitive testing and diagnosis If you find that you are getting worse or develop any new symptoms, please feel free to return to the emergency department for further evaluation. Prescriptions: No Action pantoprazole 40 mg tablet,delayed release (DR/EC) PO Referrals: Jonathan Tony MD [Primary Care Provider] -
[2022-04-17] MEDS: IBUPROFEN 400 MG TABLET PO (03:09)
[2022-04-17] MEDS: ACETAMINOPHEN 325 MG TABLET PO (03:09)
[2022-04-17] MEDS: dexAMETHasone 4 MG TABLET 30 MG PO (03:09)
[2022-04-17 03:46] LABS: Influenza A - CEPHEID Flu A NEGATIVE (NEGATIVE); Influenza B - CEPHEID Flu B NEGATIVE (NEGATIVE); Respiratory Syncytial Virus Negative (Negative)
[2022-04-17 03:47] LABS: COVID-19 CEPHEID 4-PLEX PCR POSITIVE (Negative)
--- NOTE | 2022-04-17 03:50 | PC.NURSE ---
notified by lab pt was covid +, pt was called and notified with instructions on how to take care of herself, pt verbalized understanding
== END 2022-04-17 03:23 | disposition home or self-care (01) ==
PROVIDERS: Emergency Provider Emergency Medicine; Family Provider Student in an Organized Health Care Education/Training Program; PCP Student in an Organized Health Care Education/Training Program
DX: M54.12 Radiculopathy, cervical region (principal); M77.01 Medial epicondylitis, right elbow; G56.21 Lesion of ulnar nerve, right upper limb; M25.511 Pain in right shoulder; Z20.822 Contact with and (suspected) exposure to COVID-19
CPT/HCPCS: 0241U; 99283

== ENCOUNTER → 2022-04-21 14:33 | Outpatient (CLI) | payer OTHER, MEDICAID, SELFPAY ==
--- NOTE | 2022-04-21 14:34 | DI.MG.S_ITS ---
BILATERAL DIGITAL SCREENING MAMMOGRAM 3D/2D WITH CAD: 04/21/2022 CLINICAL: Routine screening. Baseline exam. No prior exams were available for comparison. Both breasts are heterogeneously dense, which may obscure small masses (category c / 51-75% glandular tissue). Current study was also evaluated with a Computer Aided Detection (CAD) system. No significant masses, calcifications, or other findings are seen in either breast. IMPRESSION: NEGATIVE There is no mammographic evidence of malignancy. A 1 year screening mammogram is recommended. Based on the Tyrer Cuzick model (a risk assessment model) the patient's lifetime risk is 9.5% and her 10 year risk is 1.2%. According to the ACR, ACS, and NCCN guidelines, an annual breast MRI exam along with mammogram is recommended if the patient's lifetime risk is 20% or greater. This exam was interpreted at Station ID: [id number]. NOTE: For mammograms, a report in lay terms will be sent to the patient. Approximately 15% of breast malignancies will not be visualized mammographically. In the management of a palpable breast mass, a negative mammogram must not discourage biopsy of a clinically suspicious lesion. Electronically Signed By: Brian Arana M.D., jr/dino:04/21/2022 15:32:48 letter sent: Normal Exam ACR BI-RADS Category 1: Negative [id number]
== END ==
PROVIDERS: Family Provider Student in an Organized Health Care Education/Training Program; PCP Student in an Organized Health Care Education/Training Program; Referring Provider Student in an Organized Health Care Education/Training Program; Visit Provider Student in an Organized Health Care Education/Training Program
DX: Z12.31 Encounter for screening mammogram for malignant neoplasm of breast (principal)
CPT/HCPCS: 77063; 77067

== ENCOUNTER 2022-07-12 17:37 | Emergency (ER) | payer OTHER, MEDICAID, SELFPAY ==
[2022-07-12] VITALS (16 sets, daily range): BP systolic 93–126; BP diastolic 62–85; PULSE 77–102; RESP 16–33; TEMP 36.5; O2SAT 95–100; BMI 25.7
[2022-07-12 18:33] LABS: Bacteria Urine Many (>30); Culture Indicated Urine Specimen Cultured; RBC Urine 1-5/HPF (0-5/HPF); Squamous Epithelial Cell Urine 1-5 /HPF (0-5/HPF); WBC Urine 1-5/HPF (0-5/HPF)
--- NOTE | 2022-07-12 18:51 | ED_ITS ---
HPI - Syncope General Chief Complaint: Syncope Stated Complaint: LOC, hit head, ringing in ears Time Seen by Provider: 07/12/22 18:04 History of Present Illness HPI narrative: 41-year-old female daily smoker with noncontributory chronic medical history presents for evaluation of a syncopal episode. She states that for the past week or so she has been having trouble with nausea and vomiting as well as diarrhea and had been seen and evaluated at an emergency department in [place] without any significant findings. She states that she is been continuing to have the occasional loose stool and persistently nauseated but no longer is vomiting. She had a bowel movement and soon after standing up started feeling dizzy, weak and lightheaded, she admits to feeling flushed and feeling a ringing in her ears at which point she had a brief syncopal episode. She denies any injury as a consequence specifically no head, neck or back pain. She denies any new medications, recent antibiotics or exposure to other ill persons. Related Data Home Medications Medication Instructions Recorded Confirmed omeprazole 20 mg tablet,delayed 20 mg PO DAILY 07/05/22 07/05/22 release Previous Rx's Medication Instructions Recorded ondansetron 4 mg disintegrating 4 mg PO TID-QID PRN nausea and 07/12/22 tablet vomiting #10 tabs pantoprazole 40 mg tablet,delayed 40 mg PO DAILY #30 tabs 07/12/22 release (Protonix) Allergies Allergy/AdvReac Type Severity Reaction Status Date / Time No Known Drug Allergies Allergy Verified 07/05/22 08:46 Review of Systems Review of Systems Narrative: GENERAL: Denies chills, fatigue, malaise, fever, sweats. HEENT: Denies sinus pain, ear pain, sore throat, difficulty swallowing, dizziness. RESPIRATORY: Denies dyspnea, cough, wheezing, hemoptysis, sputum. CARDIOVASCULAR: See HPI GASTROINTESTINAL: See HPI : Denies dysuria, frequency, incontinence, hematuria, urinary retention. MUSCULOSKELETAL: denies weakness, joint pain, or bony pain SKIN: Denies rash, skin lesions, or other NEUROLOGIC: Denies weakness, headache, numbness, change in speech, confusion, seizures, incoordination. PSYCHIATRIC: No concerning psychosocial issues. 12 point review of systems is negative except for those stated above Patient History Medical History Herpes simplex type 1 infection Onychomycosis Tremor of both hands Surgical History Anesthesia Status post dilation and curettage (~1997) Status post tubal ligation (01/26/09) Social History Smoking Status: Current every day smoker Smoking Status: Current every day smoker tobacco type: cigarettes alcohol intake frequency: holidays/special occasions only Substance Use Type: marijuana Exam Narrative Exam Narrative: GENERAL: [41] year old patient appears stated age. Well-developed patient, in mild distress. HEAD: Atraumatic. Normocephalic. EYES: Pupils equal round and reactive. Extraocular motions intact. No scleral icterus. No injection or drainage. ENT: Nose without bleeding, purulent drainage. Throat without erythema, tonsillar hypertrophy or exudate. Airway patent. NECK: Trachea midline. Non tender CARDIOVASCULAR: Regular rate and rhythm without murmurs, gallops, or rubs. RESPIRATORY: Clear to auscultation. Breath sounds equal bilaterally. No wheezes, rales, or rhonchi. GASTROINTESTINAL: Abdomen soft, non-tender, nondistended. EXTREMITIES: No edema or joint tenderness. BACK: Nontender without deformity or crepitance. No flank tenderness. NEURO: AOx3. SKIN: No rash or erythema of visible areas Initial Vital Signs Initial Vital Signs: Vital Signs Pulse Rate 96 H 07/12/22 17:43 Pulse Oximetry 100 07/12/22 17:43 Course Orders Ordered: ED Orders 07/12/22 16:58 Urine Culture Stat Urine Drug Screen, Rapid Stat Urine Microscopic Stat 07/12/22 19:05 EKG-12 Lead Stat 07/12/22 19:10 Complete Blood Count AUTO DIFF Stat Comprehensive Metabolic Panel Stat Ethanol (ETOH) Stat Magnesium Stat 07/12/22 19:46 CT head/brain wo con Stat 07/12/22 20:20 Covid-19 + FLU A/B + RSV - PCR Stat Discontinued Medications Sodium Chloride (Normal Saline 0.9%) 1,000 mls @ 1,000 mls/hr IV BOLUS ONE Stop: 07/12/22 20:03 Last Infusion: 07/12/22 20:59 Dose: 0 mls/hr Documented By: Admin: 07/12/22 19:22 Dose: 1,000 mls/hr Documented By: JARED Pantoprazole Sodium (Pantoprazole 40 Mg Vial) 40 mg IV NOW ONE Stop: 07/12/22 19:05 Last Admin: 07/12/22 19:22 Dose: 40 mg Documented By: JARED Reevaluation(s) Reevaluation #1: Patient feels significantly better after above-stated therapies Vital Signs Vital signs: Vital Signs - 8 hr 07/12/22 17:51 07/12/22 17:43 07/12/22 17:44 Temperature 97.7 F Pulse Rate 96 H 96 H 99 H Respiratory Rate 16 Blood Pressure 111/69 Pulse Oximetry 100 100 100 Oxygen Delivery Method Room Air 07/12/22 17:44 07/12/22 18:24 07/12/22 18:25 Temperature Pulse Rate 94 H Respiratory Rate 24 Blood Pressure 111/69 108/71 Pulse Oximetry 99 Oxygen Delivery Method 07/12/22 18:25 07/12/22 18:30 07/12/22 18:30 Temperature Pulse Rate 87 88 Respiratory Rate 16 22 Blood Pressure 107/71 Pulse Oximetry 99 95 Oxygen Delivery Method 07/12/22 18:45 07/12/22 18:45 07/12/22 18:59 Temperature Pulse Rate 77 90 Respiratory Rate 19 19 Blood Pressure 96/64 Pulse Oximetry 97 97 Oxygen Delivery Method 07/12/22 19:00 07/12/22 19:00 07/12/22 19:15 Temperature Pulse Rate 102 H 90 Respiratory Rate 24 21 Blood Pressure 126/85 Pulse Oximetry 99 100 Oxygen Delivery Method 07/12/22 19:15 07/12/22 19:30 07/12/22 19:30 Temperature Pulse Rate 85 Respiratory Rate 18 Blood Pressure 109/73 105/70 Pulse Oximetry 100 Oxygen Delivery Method 07/12/22 19:45 07/12/22 19:45 07/12/22 20:00 Temperature Pulse Rate 77 84 Respiratory Rate 19 18 Blood Pressure 93/62 Pulse Oximetry 100 100 Oxygen Delivery Method 07/12/22 20:18 07/12/22 20:18 07/12/22 20:30 Temperature Pulse Rate 77 Respiratory Rate 17 Blood Pressure 113/64 102/63 Pulse Oximetry 100 Oxygen Delivery Method Room Air 07/12/22 20:30 07/12/22 20:45 07/12/22 20:45 Temperature Pulse Rate 94 H 92 H Respiratory Rate 33 H 18 Blood Pressure 107/70 Pulse Oximetry 98 100 Oxygen Delivery Method MDM - Syncope Lab Data 07/12/22 19:10 07/12/22 19:10 Labs: Lab Results 07/12/22 07/12/22 07/12/22 Range/Units 16:58 16:58 19:10 WBC 6.3 (4.5-11.0) X10^3/uL RBC 4.01 (4.0-5.2) X10^6/uL Hgb 12.7 (12.0-16.0) g/dL Hct 37.8 (36-46) % MCV 94.4 (80-100) fL MCH 31.6 (26-34) PG MCHC 33.5 (30-36) % RDW 13.0 (11.6-14.8) % Plt Count 382 (150-400) X10^3/uL Neut % (Auto) 57.2 (50-75) % Lymph % (Auto) 33.4 (25-40) % [place] % (Auto) 8.6 (3-14) % Eos % (Auto) 0.4 L (2-4) % Baso % (Auto) 0.4 (0-2) % Neut # (Auto) 3600 (5604-7009) /uL Lymph # (Auto) 2100 (7199-5820) /uL [place] # (Auto) 500 (0-900) /uL Eos # (Auto) 0 (0-450) /uL Baso # (Auto) 0 (0-100) /uL Sodium (137-145) mmol/L Potassium (3.4-5.1) mmol/L Chloride (98-107) mmol/L Carbon Dioxide (22-32) mmol/L BUN (7-17) mg/dL Creatinine (0.52-1.04) mg/dL Estimated GFR (>60) mL/min BUN/Creatinine Ratio (6-22) Glucose (70-100) mg/dL Calcium (8.4-10.2) mg/dL Magnesium (1.6-2.3) mg/dL Total Bilirubin (0.2-1.3) mg/dL AST (14-36) IU/L ALT (<35) IU/L Alkaline Phosphatase (38-126) U/L Total Protein (6.3-8.2) g/dL Albumin (3.5-5.0) g/dL Globulin (1.7-4.1) g/dL Albumin/Globulin Ratio (1.0-2.8) Urine RBC 1-5/hpf (0-5/HPF) Urine WBC 1-5/hpf (0-5/HPF) Ur Squamous Epith Cells 1-5 /hpf (0-5/HPF) Urine Bacteria Many (>30) H (None) Ur Culture Indicated? Specimen cultured U Opiates 300ng/mL cut Negative (Negative) Ur Oxycodone Screen Negative (Negative) Urine Methadone Screen Negative (Negative) Ur Barbiturates Screen Negative (Negative) U Tricyclic Antidepress Positive H (Negative) Ur Phencyclidine Scrn Negative (Negative) Ur Amphetamines Screen Positive H (Negative) U Methamphetamines Scrn Positive H (Negative) Ur MDMA Scrn (Ecstasy) Positive H (Negative) U Benzodiazepines Scrn Negative (Negative) Urine Cocaine Screen Negative (Negative) U Marijuana (THC) Screen Positive H (Negative) Ethyl Alcohol ( - 10) mg/dL SARS-CoV-2 (PCR) (Negative) Influenza A (RT-PCR) (NEGATIVE) Influenza B (RT-PCR) (NEGATIVE) RSV (PCR) (Negative) 07/12/22 07/12/22 07/12/22 Range/Units 19:10 19:10 20:20 WBC (4.5-11.0) X10^3/uL RBC (4.0-5.2) X10^6/uL Hgb (12.0-16.0) g/dL Hct (36-46) % MCV (80-100) fL MCH (26-34) PG MCHC (30-36) % RDW (11.6-14.8) % Plt Count (150-400) X10^3/uL Neut % (Auto) (50-75) % Lymph % (Auto) (25-40) % [place] % (Auto) (3-14) % Eos % (Auto) (2-4) % Baso % (Auto) (0-2) % Neut # (Auto) (6634-3720) /uL Lymph # (Auto) (0367-1524) /uL [place] # (Auto) (0-900) /uL Eos # (Auto) (0-450) /uL Baso # (Auto) (0-100) /uL Sodium 137 (137-145) mmol/L Potassium 3.9 (3.4-5.1) mmol/L Chloride 103 (98-107) mmol/L Carbon Dioxide 28 (22-32) mmol/L BUN 15 (7-17) mg/dL Creatinine 0.70 (0.52-1.04) mg/dL Estimated GFR > 60 (>60) mL/min BUN/Creatinine Ratio 21.4 (6-22) Glucose 80 (70-100) mg/dL Calcium 9.0 (8.4-10.2) mg/dL Magnesium 2.0 (1.6-2.3) mg/dL Total Bilirubin 0.5 (0.2-1.3) mg/dL AST 37 H (14-36) IU/L ALT 39 H (<35) IU/L Alkaline Phosphatase 61 (38-126) U/L Total Protein 7.2 (6.3-8.2) g/dL Albumin 4.2 (3.5-5.0) g/dL Globulin 3.0 (1.7-4.1) g/dL Albumin/Globulin Ratio 1.4 (1.0-2.8) Urine RBC (0-5/HPF) Urine WBC (0-5/HPF) Ur Squamous Epith Cells (0-5/HPF) Urine Bacteria (None) Ur Culture Indicated? U Opiates 300ng/mL cut (Negative) Ur Oxycodone Screen (Negative) Urine Methadone Screen (Negative) Ur Barbiturates Screen (Negative) U Tricyclic Antidepress (Negative) Ur Phencyclidine Scrn (Negative) Ur Amphetamines Screen (Negative) U Methamphetamines Scrn (Negative) Ur MDMA Scrn (Ecstasy) (Negative) U Benzodiazepines Scrn (Negative) Urine Cocaine Screen (Negative) U Marijuana (THC) Screen (Negative) Ethyl Alcohol < 10 ( - 10) mg/dL SARS-CoV-2 (PCR) Negative (Negative) Influenza A (RT-PCR) Flu a negative (NEGATIVE) Influenza B (RT-PCR) Flu b negative (NEGATIVE) RSV (PCR) Negative (Negative) Point of Care Testing Test Results Negative Urine Dip Bedside Urine Glucose Negative Bedside Urine Bilirubin - Negative Bedside Urine Ketone + 15 Urine Specific [place] 1.030 Bedside Urine Occult Blood ++ Bedside Urine pH 6.0 Bedside Urine Protein +/- 15 Bedside Urine Urobilinogen - Negative Bedside Urine Nitrite + Positive Bedside Urine Leukocytes - Negative Esterase ECG Data Interpretation: [1914] EKG is normal sinus rhythm rate [85 ] and free of any signs of ischemia or ectopy. No ST segmental elevation or depression. No T wave inversions MDM Narrative Medical decision making narrative: CC: 41-year-old female with a week of GI symptoms and syncopal episode Complicating co-morbidities: None known Data collected from: Patient Medical records reviewed: Prior notes reviewed in our EMR Differential considered, but not limited to: Dehydration, arrhythmia, electrolyte abnormality versus other Exam documented above, pertinent findings include: Heart rate regular, lungs clear and nonlabored, abdomen soft with bowel sounds present Lab Test results independently reviewed as above. Pertinent findings: Independently reviewed EKG as above Imaging studies independently reviewed: Head CT without abnormal findings Treatments: Fluids and Protonix Re-evaluations: Patient feeling significant improvement, vital signs of improve, patient is tolerating orals and ambulatory in the department Discussion: Patient with recent GI symptoms and a syncopal episode today upon changing position. She did strike her head but has no high-risk features and has a normal head CT. Labs are reassuring and response to therapies is reassuring. There is no evidence of any diagnosis that would require a specific or immediate intervention. Patient given antiemetics, encouraged to employed clear liquid diet for the next day or 2 and follow closely with her primary care provider. Disposition: see below, along with detailed discharge instructions that have been reviewed with patient as well as indications for ED re-evaluation and additional outpatient follow up Discharge Plan Departure Patient Disposition: Home Clinical Impression: Acute dehydration, Syncope Instructions: DI for Syncope in Adults (Fainting) Activity Restrictions/Additional Instructions: *You have been diagnosed with [Syncope and dehydration] *What to do: *Please continue to take your regular medications as directed. [ x] New medication prescriptions sent to your pharmacy: [[facility] ] [ ] New medication written as a paper prescription [ ] No new medications given *Please follow up with your primary care provider in 2-3 days, call for an appointment. Let them know you were seen in the Emergency Department and that we ask that you be seen in follow up. We will electronically transmit a record of today's note if your PCP is in our system *If you do not have a primary care provider please contact the [facility] Resource line at [phone]. They will ask some questions about your medical history and help get you set up with a doctor in the community. *Return to Emergency Department if you should have any new, worsening or concerning symptoms, such as [fever greater than 101 F, shaking chills, worsening pain, persistent vomiting or other bothersome symptoms] Prescriptions: New pantoprazole [Protonix] 40 mg tablet,delayed release (DR/EC) 40 mg PO DAILY Qty: 30 0RF ondansetron 4 mg tablet,disintegrating 4 mg PO TID-QID PRN (Reason: nausea and vomiting) Qty: 10 0RF No Action omeprazole 20 mg tablet,delayed release (DR/EC) 20 mg PO DAILY Referrals: Jonathan Tony MD [Primary Care Provider] - Stand Alone Forms: Patient Portal/API
[2022-07-12 19:16] LABS: Add Manual Diff / Slide Review NO; Basophils Absolute Auto 0 /uL (0-100); Basophils Percent Auto 0.4 % (0-2); Eosinophils Absolute Auto 0 /uL (0-450); Eosinophils Percent Auto 0.4 % (2-4); Hematocrit 37.8 % (36-46); Hemoglobin 12.7 g/dL (12.0-16.0); Lymphocytes Absolute Auto 2100 /uL (1100-4500); Lymphocytes Percent Auto 33.4 % (25-40); Mean Corpuscular HGB Conc 33.5 % (30-36); Mean Corpuscular Hemoglobin 31.6 PG (26-34); Mean Corpuscular Volume 94.4 fL (80-100); Monocytes Absolute Auto 500 /uL (0-900); Monocytes Percent Auto 8.6 % (3-14); Neutrophils Absolute Auto 3600 /uL (1500-7000); Neutrophils Percent Auto 57.2 % (50-75); Platelet Count 382 X10^3/uL (150-400); Red Blood Cell Count 4.01 X10^6/uL (4.0-5.2); White Blood Cell Count 6.3 X10^3/uL (4.5-11.0)
[2022-07-12 19:20] LABS: Ethanol (ETOH) < 10 mg/dL
[2022-07-12 19:22] LABS: Alanine Aminotransferase 39 IU/L (<35); Albumin 4.2 g/dL (3.5-5.0); Albumin Globulin Ratio 1.4 (1.0-2.8); Alkaline Phosphatase 61 U/L (38-126); Aspartate Aminotransferase 37 IU/L (14-36); BUN Creatinine Ratio 21.4 (6-22); Bilirubin Total 0.5 mg/dL (0.2-1.3); Blood Urea Nitrogen 15 mg/dL (7-17); Carbon Dioxide 28 mmol/L (22-32); Chloride 103 mmol/L (98-107); Estimated Glomerular Filt Rate > 60 mL/min (>60); Glucose 80 mg/dL (70-100); HEMOLYSIS 41 (0-50); Potassium 3.9 mmol/L (3.4-5.1); Sodium 137 mmol/L (137-145); Total Protein 7.2 g/dL (6.3-8.2)
[2022-07-12] MEDS: SODIUM CHLORIDE 0.9% 1,000 ML 1000 ML IV (19:22)
[2022-07-12] MEDS: PANTOPRAZOLE 40 MG VIAL IV (19:22)
--- NOTE | 2022-07-12 19:46 | DI.CT.S_ITS ---
PROCEDURE: CT HEAD/BRAIN WO CON INDICATIONS: syncope, with resultant head injury TECHNIQUE: Noncontrast 4.5 mm thick angled axial sections acquired from the foramen magnum to the vertex, with coronal and sagittal reformats. For radiation dose reduction, the following was used: automated exposure control, adjustment of mA and/or kV according to patient size. COMPARISON: None. FINDINGS: Image quality: Excellent. CSF spaces: Basal cisterns are patent. No extra-axial fluid collections. Ventricles are normal in size and shape. Brain: No intracranial hemorrhage, mass, or mass effect. Crawford-white matter interface appears preserved. Skull and face: Calvarium and visualized facial bones are intact, without suspicious lesions. Sinuses: Visualized sinuses and mastoids are clear. IMPRESSION: 1. No acute intracranial abnormality. Dictated by: Aamir Diallo M.D. on 07/12/2022 at 20:17 Approved by: Aamir Diallo M.D. on 07/12/2022 at 20:18
[2022-07-12 20:15] LABS: UR Morphine/Opiate cutoff 300 Negative (Negative); Ur Creatinine Normal (Normal); Ur Specific Gravity Normal (Normal); Urine Amphetamines Positive (Negative); Urine Barbiturates Negative (Negative); Urine Benzodiazepines Negative (Negative); Urine Cocaine Negative (Negative); Urine MDMA Positive (Negative); Urine Methadone Negative (Negative); Urine Methamphetamines Positive (Negative); Urine Oxycodone Negative (Negative); Urine Phencyclidine Negative (Negative); Urine Tetrahydrocannabinol Positive (Negative); Urine Tricyclic Antidepressant Positive (Negative); Urine pH Normal (Normal)
[2022-07-12 21:01] LABS: Influenza A - CEPHEID Flu A NEGATIVE (NEGATIVE); Influenza B - CEPHEID Flu B NEGATIVE (NEGATIVE); Respiratory Syncytial Virus Negative (Negative)
[2022-07-12 21:22] LABS: COVID-19 CEPHEID 4-PLEX PCR Negative (Negative)
== END 2022-07-12 21:02 | disposition home or self-care (01) ==
PROVIDERS: Emergency Provider Emergency Medicine; Family Provider Student in an Organized Health Care Education/Training Program; PCP Student in an Organized Health Care Education/Training Program
DX: R55 Syncope and collapse (principal); E86.0 Dehydration; R07.9 Chest pain, unspecified; R11.2 Nausea with vomiting, unspecified; Z20.822 Contact with and (suspected) exposure to COVID-19
CPT/HCPCS: 0241U; 36415; 70450; 80053; 80305; 80320; 81003; 81015; 81025; 83735; 85025; 87077; 87086; 87186; 93005; 93010; 96361; 96374; 99284; C9113

== ENCOUNTER 2022-07-17 20:58 | Emergency (ER) | payer OTHER, MEDICAID, SELFPAY ==
[2022-07-17] VITALS (8 sets, daily range): BP systolic 100–125; BP diastolic 59–71; PULSE 70–111; RESP 15–16; TEMP 36.6; O2SAT 100; BMI 25.7
--- NOTE | 2022-07-17 21:19 | DI.CT.S_ITS ---
PROCEDURE: CT ABDOMEN PELVIS W CON INDICATIONS: L sided abd pain with subjective lump in the area TECHNIQUE: After the administration of IV contrast, axial sections were acquired from the lung bases to the pubic symphysis. Coronal and sagittal reformats were performed. For radiation dose reduction, the following was used: automated exposure control, adjustment of mA and/or kV according to patient size. COMPARISON: [facility], CT, CT ABDOMEN PELVIS W CON, 02/28/2021, 11:37. FINDINGS: Image quality: Excellent. Lung bases: Unremarkable. Heart: Heart is normal in size. ABDOMEN: Liver: No mass lesion. Gallbladder: Within normal limits without calcified gallstones. Biliary ducts: No biliary ductal dilatation. Pancreas: Unremarkable. Spleen: Normal in size. Adrenal Glands: No adrenal nodules. Kidneys and Ureters: No hydronephrosis. Stomach and Bowel: Stomach, small bowel loops, and colon are normal in caliber and wall thickness. No pericecal inflammatory changes to suggest appendicitis. Peritoneum: No abnormal intraperitoneal fluid. No free air. Ventral Wall: There is a left paracentral supraumbilical region of subcutaneous fat stranding as seen on series 2, image 42. No hernia. Abdominal Nodes: No retroperitoneal or mesenteric adenopathy by size criteria. Vessels: Aorta and inferior vena cava are normal in size. PELVIS: Pelvic Organs: Unremarkable. Bladder: Unremarkable. Pelvic Nodes: No enlarged lymph nodes. Miscellaneous: There are prominent parametrial and uterine vessels within the pelvis. No inguinal hernias. Bones: Visualized osseous structures demonstrate no suspicious focal lesions. IMPRESSION: 1. Small localized left paracentral periumbilical region of subcutaneous fat stranding in the abdominal wall without an associated discrete hernia. The findings are suggestive of fat necrosis versus an infectious or inflammatory process. 2. Prominent parametrial and uterine vessels in the pelvis may reflect pelvic congestion syndrome in the appropriate clinical context. Dictated by: Aamir Diallo M.D. on 07/17/2022 at 22:19 Approved by: Aamir Diallo M.D. on 07/17/2022 at 22:41
[2022-07-17 21:39] LABS: Add Manual Diff / Slide Review NO; Basophils Absolute Auto 0 /uL (0-100); Basophils Percent Auto 0.1 % (0-2); Eosinophils Absolute Auto 100 /uL (0-450); Eosinophils Percent Auto 0.9 % (2-4); Hematocrit 39.1 % (36-46); Hemoglobin 13.2 g/dL (12.0-16.0); Lymphocytes Absolute Auto 2900 /uL (1100-4500); Lymphocytes Percent Auto 39.4 % (25-40); Mean Corpuscular HGB Conc 33.8 % (30-36); Mean Corpuscular Hemoglobin 32.2 PG (26-34); Mean Corpuscular Volume 95.4 fL (80-100); Monocytes Absolute Auto 500 /uL (0-900); Monocytes Percent Auto 6.8 % (3-14); Neutrophils Absolute Auto 3900 /uL (1500-7000); Neutrophils Percent Auto 52.8 % (50-75); Platelet Count 365 X10^3/uL (150-400); Red Cell Distribution Width 13.5 % (11.6-14.8); White Blood Cell Count 7.4 X10^3/uL (4.5-11.0)
[2022-07-17 21:58] LABS: Lipase 72 U/L (23-300)
[2022-07-17 21:59] LABS: Alanine Aminotransferase 26 IU/L (<35); Albumin 3.9 g/dL (3.5-5.0); Albumin Globulin Ratio 1.3 (1.0-2.8); Alkaline Phosphatase 88 U/L (38-126); Aspartate Aminotransferase 28 IU/L (14-36); BUN Creatinine Ratio 18.5 (6-22); Bilirubin Total 0.2 mg/dL (0.2-1.3); Blood Urea Nitrogen 12 mg/dL (7-17); Calcium 9.1 mg/dL (8.4-10.2); Carbon Dioxide 30 mmol/L (22-32); Chloride 103 mmol/L (98-107); Estimated Glomerular Filt Rate > 60 mL/min (>60); Globulin 2.9 g/dL (1.7-4.1); Glucose 89 mg/dL (70-100); HEMOLYSIS 23 (0-50); Potassium 4.2 mmol/L (3.4-5.1); Sodium 137 mmol/L (137-145); Total Protein 6.8 g/dL (6.3-8.2)
--- NOTE | 2022-07-17 21:59 | ED.GENADULT ---
HPI - General Adult General Chief complaint: Abdominal Pain Stated complaint: ABD pain, Lump in ABD Time Seen by Provider: 07/17/22 21:12 Source: patient Mode of arrival: Ambulatory Limitations: no limitations History of Present Illness HPI narrative: 41-year-old female who was recently here in the emergency department for a presyncopal/syncopal episode. Has had some issues with diarrhea/constipation in the past. She is seeing a GI doctor. She is scheduled to have a colonoscopy next month. She is here because on Monday she started to have some pain in her abdomen. She laid down and felt a lump in the area. It has been painful. She is no change in her bowel habits. No vomiting. She has had her tubes tied but no other abdominal surgeries. Related Data Home Medications Medication Instructions Recorded Confirmed omeprazole 20 mg tablet,delayed 20 mg PO DAILY 07/05/22 07/05/22 release Previous Rx's Medication Instructions Recorded ondansetron 4 mg disintegrating 4 mg PO TID-QID PRN nausea and 07/12/22 tablet vomiting #10 tabs pantoprazole 40 mg tablet,delayed 40 mg PO DAILY #30 tabs 07/12/22 release (Protonix) cephalexin 500 mg tablet 500 mg PO TID 7 days #21 tabs 07/14/22 Allergies Allergy/AdvReac Type Severity Reaction Status Date / Time No Known Drug Allergies Allergy Verified 07/17/22 21:21 Review of Systems Constitutional Constitutional: Reports system reviewed and no additional complaints, except as documented Gastrointestinal Gastrointestinal: Reports system reviewed and no additional complaints, except as documented Integumentary/Breasts Skin/Breast: Reports system reviewed and no additional complaints, except as documented Patient History Medical History Herpes simplex type 1 infection Onychomycosis Tremor of both hands Surgical History Anesthesia Status post dilation and curettage (~1997) Status post tubal ligation (01/26/09) Social History Smoking Status: Current every day smoker Smoking Status: Current every day smoker tobacco type: cigarettes alcohol intake frequency: holidays/special occasions only Substance Use Type: marijuana Exam Initial Vital Signs Initial Vital Signs: Vital Signs Blood Pressure 125/67 07/17/22 21:18 Const General: comfortable GI Other: Patient does have a well-defined lump that is freely movable just superior to her umbilicus. It is tender to the touch. It is smaller than half of a golf ball. Direct pressure on it shows that it does become smaller. Skin General: no rashes or lesions noted Neuro General: patient alert and patient awake Course Orders Ordered: ED Orders 07/17/22 21:19 CT abdomen pelvis w con Stat 07/17/22 21:26 Complete Blood Count AUTO DIFF Stat Comprehensive Metabolic Panel Stat Lipase Stat Test Serum,Qual Stat Discontinued Medications Hydromorphone HCl (Hydromorphone 1 Mg Inj) 1 mg IV NOW ONE Stop: 07/17/22 22:00 Last Admin: 07/17/22 22:10 Dose: 1 mg Documented By: SHERRON Vital Signs Vital signs: Vital Signs - 8 hr 07/17/22 21:20 07/17/22 21:18 07/17/22 21:19 Temperature 98 F Pulse Rate 111 H 111 H Respiratory Rate 16 Blood Pressure 125/67 125/67 Pulse Oximetry 100 100 Oxygen Delivery Method Room Air 07/17/22 21:30 07/17/22 21:30 07/17/22 21:38 Temperature Pulse Rate 97 H 87 Respiratory Rate Blood Pressure 108/71 Pulse Oximetry 100 100 Oxygen Delivery Method 07/17/22 21:38 07/17/22 22:00 07/17/22 22:00 Temperature Pulse Rate 74 Respiratory Rate Blood Pressure 121/70 107/71 Pulse Oximetry 100 Oxygen Delivery Method 07/17/22 22:30 07/17/22 22:30 Temperature Pulse Rate 80 Respiratory Rate Blood Pressure 102/62 Pulse Oximetry 100 Oxygen Delivery Method Medical Decision Making Medical Records Medical records reviewed: Yes I reviewed the patient's medical records. Lab Data Lab results reviewed: Yes I reviewed the patient's lab results. 07/17/22 21:26 07/17/22 21:26 Labs: Lab Results 07/17/22 07/17/22 07/17/22 Range/Units 21:26 21:26 21:26 WBC 7.4 (4.5-11.0) X10^3/uL RBC 4.10 (4.0-5.2) X10^6/uL Hgb 13.2 (12.0-16.0) g/dL Hct 39.1 (36-46) % MCV 95.4 (80-100) fL MCH 32.2 (26-34) PG MCHC 33.8 (30-36) % RDW 13.5 (11.6-14.8) % Plt Count 365 (150-400) X10^3/uL Neut % (Auto) 52.8 (50-75) % Lymph % (Auto) 39.4 (25-40) % [place] % (Auto) 6.8 (3-14) % Eos % (Auto) 0.9 L (2-4) % Baso % (Auto) 0.1 (0-2) % Neut # (Auto) 3900 (5961-7126) /uL Lymph # (Auto) 2900 (2837-3527) /uL [place] # (Auto) 500 (0-900) /uL Eos # (Auto) 100 (0-450) /uL Baso # (Auto) 0 (0-100) /uL Sodium 137 (137-145) mmol/L Potassium 4.2 (3.4-5.1) mmol/L Chloride 103 (98-107) mmol/L Carbon Dioxide 30 (22-32) mmol/L BUN 12 (7-17) mg/dL Creatinine 0.65 (0.52-1.04) mg/dL Estimated GFR > 60 (>60) mL/min BUN/Creatinine Ratio 18.5 (6-22) Glucose 89 (70-100) mg/dL Calcium 9.1 (8.4-10.2) mg/dL Total Bilirubin 0.2 (0.2-1.3) mg/dL AST 28 (14-36) IU/L ALT 26 (<35) IU/L Alkaline Phosphatase 88 (38-126) U/L Total Protein 6.8 (6.3-8.2) g/dL Albumin 3.9 (3.5-5.0) g/dL Globulin 2.9 (1.7-4.1) g/dL Albumin/Globulin Ratio 1.3 (1.0-2.8) Lipase 72 (23-300) U/L Serum , Qual (Negative) 07/17/22 Range/Units 21:26 WBC (4.5-11.0) X10^3/uL RBC (4.0-5.2) X10^6/uL Hgb (12.0-16.0) g/dL Hct (36-46) % MCV (80-100) fL MCH (26-34) PG MCHC (30-36) % RDW (11.6-14.8) % Plt Count (150-400) X10^3/uL Neut % (Auto) (50-75) % Lymph % (Auto) (25-40) % [place] % (Auto) (3-14) % Eos % (Auto) (2-4) % Baso % (Auto) (0-2) % Neut # (Auto) (7535-9906) /uL Lymph # (Auto) (8046-5311) /uL [place] # (Auto) (0-900) /uL Eos # (Auto) (0-450) /uL Baso # (Auto) (0-100) /uL Sodium (137-145) mmol/L Potassium (3.4-5.1) mmol/L Chloride (98-107) mmol/L Carbon Dioxide (22-32) mmol/L BUN (7-17) mg/dL Creatinine (0.52-1.04) mg/dL Estimated GFR (>60) mL/min BUN/Creatinine Ratio (6-22) Glucose (70-100) mg/dL Calcium (8.4-10.2) mg/dL Total Bilirubin (0.2-1.3) mg/dL AST (14-36) IU/L ALT (<35) IU/L Alkaline Phosphatase (38-126) U/L Total Protein (6.3-8.2) g/dL Albumin (3.5-5.0) g/dL Globulin (1.7-4.1) g/dL Albumin/Globulin Ratio (1.0-2.8) Lipase (23-300) U/L Serum , Qual Negative (Negative) Imaging Data CT scan - abdomen/pelvis: Radiologist's Impression: PROCEDURE:? CT ABDOMEN PELVIS W CON ? INDICATIONS:? L sided abd pain with subjective lump in the area ? TECHNIQUE:? After the administration of IV contrast, axial sections were acquired from the lung bases to the pubic symphysis.? Coronal and sagittal reformats were performed.? For radiation dose reduction, the following was used:? automated exposure control, adjustment of mA and/or kV according to patient size. ? COMPARISON:? [facility], CT, CT ABDOMEN PELVIS W CON, 02/28/2021, 11:37. ? FINDINGS:? Image quality:? Excellent.? ? Lung bases:? Unremarkable.? ? Heart:? Heart is normal in size. ? ? ABDOMEN: Liver:? No mass lesion. Gallbladder:? Within normal limits without calcified gallstones.? ? Biliary ducts:? No biliary ductal dilatation.? ? Pancreas:? Unremarkable.? ? Spleen:? Normal in size.? ? Adrenal Glands:? No adrenal nodules.? ? Kidneys and Ureters:? No hydronephrosis.? ? ? Stomach and Bowel:? Stomach, small bowel loops, and colon are normal in caliber and wall thickness.? No pericecal inflammatory changes to suggest appendicitis.? Peritoneum:? No abnormal intraperitoneal fluid.? No free air.? ? Ventral Wall: ? There is a left paracentral supraumbilical region of subcutaneous fat stranding as seen on series 2, image 42. No hernia.? Abdominal Nodes:? No retroperitoneal or mesenteric adenopathy by size criteria.? Vessels:? Aorta and inferior vena cava are normal in size.? ? PELVIS: Pelvic Organs:? Unremarkable.? ? Bladder:? Unremarkable.? ? Pelvic Nodes: No enlarged lymph nodes.? Miscellaneous:? There are prominent parametrial and uterine vessels within the pelvis.? No inguinal hernias. ? ? ? Bones:? Visualized osseous structures demonstrate no suspicious focal lesions. ? IMPRESSION:? ? 1. Small localized left paracentral periumbilical region of subcutaneous fat stranding in the abdominal wall without an associated discrete hernia.? The findings are suggestive of fat necrosis versus an infectious or inflammatory process. ? 2. Prominent parametrial and uterine vessels in the pelvis may reflect pelvic congestion syndrome in the appropriate clinical context.? MDM Narrative Medical decision making narrative: The CT scan did not specifically show a ventral hernia however her exam was very consistent with 1. She would a well-defined tender mass just above the umbilicus that when pressure was placed on it it did get smaller. I did feel a ?pop? and then the mass disappeared. I could not feel a direct deficit in the abdominal wall. I do feel that her physical exam is most consistent with a hernia. Because it is reduced in her pain has resolved I will discharge her home and have her follow-up with General surgery. She was given return precautions and follow-up instructions. She expressed understanding and agreement. Discharge Plan Departure Patient Disposition: Home Clinical Impression: Ventral hernia Instructions: DI for Ventral Hernia Activity Restrictions/Additional Instructions: I do recommend that you contact the general surgery department at the number provided below for a follow-up. Return to the emergency department for any new or worsening symptoms Prescriptions: No Action omeprazole 20 mg tablet,delayed release (DR/EC) 20 mg PO DAILY pantoprazole [Protonix] 40 mg tablet,delayed release (DR/EC) 40 mg PO DAILY Qty: 30 0RF ondansetron 4 mg tablet,disintegrating 4 mg PO TID-QID PRN (Reason: nausea and vomiting) Qty: 10 0RF cephalexin 500 mg tablet 500 mg PO TID 7 Days Qty: 21 0RF Referrals: Jonathan Tony MD [Primary Care Provider] - Delmer Marquez MD [Physician] - Stand Alone Forms: Patient Portal/API
[2022-07-17 22:04] LABS: Pregnancy Test Serum,Qual Negative (Negative)
[2022-07-17] MEDS: HYDROMORPHONE 1 MG INJ IV (22:10)
== END 2022-07-17 23:00 | disposition home or self-care (01) ==
PROVIDERS: Emergency Provider Emergency Medicine; Family Provider Student in an Organized Health Care Education/Training Program; PCP Student in an Organized Health Care Education/Training Program
DX: K43.9 Ventral hernia without obstruction or gangrene (principal)
CPT/HCPCS: 36415; 74177; 80053; 83690; 84703; 85025; 96374; 99284; J1170; Q9967

== ENCOUNTER 2022-09-05 02:48 | Emergency (ER) | payer OTHER, MEDICAID, SELFPAY ==
--- NOTE | 2022-09-05 02:57 | ED.HA ---
HPI - Headache General Chief Complaint: Headache Stated Complaint: fell and can't get rid of headaches, black eye Time Seen by Provider: 09/05/22 02:53 History of Present Illness HPI Narrative: Patient is a 42-year-old female with history of a vasovagal like syncope presenting today with ongoing headache. She reports that she had a syncopal episode a week ago she stood up too fast passed out and hit her right eye. She still has a contusion there. He is not had any nausea or vomiting. She is not on any antiplatelet or anticoagulation medication. She is no numbness tingling or weakness. She is no other symptoms. She says that she slept most of the day today and she is scheduled for a ventral wall abdominal hernia surgery tomorrow into like to make sure that she is okay for surgery. sHe has no other symptoms Related Data Home Medications Medication Instructions Recorded Confirmed omeprazole 20 mg tablet,delayed 20 mg PO DAILY 07/05/22 07/25/22 release Previous Rx's Medication Instructions Recorded ondansetron 4 mg disintegrating 4 mg PO TID-QID PRN nausea and 07/12/22 tablet vomiting #10 tabs pantoprazole 40 mg tablet,delayed 40 mg PO DAILY #30 tabs 07/12/22 release (Protonix) Allergies Allergy/AdvReac Type Severity Reaction Status Date / Time No Known Drug Allergies Allergy Verified 07/25/22 13:06 Review of Systems Review of Systems ROS Unobtainable: All systems reviewed & are unremarkable except as noted in HPI and below Patient History Medical History Herpes simplex type 1 infection Onychomycosis Tremor of both hands Surgical History Anesthesia Status post dilation and curettage (~1997) Status post tubal ligation (01/26/09) Social History Smoking Status: Current every day smoker alcohol intake: current Smoking Status: Current every day smoker tobacco type: cigarettes alcohol intake frequency: holidays/special occasions only Substance Use Type: marijuana Exam Initial Vital Signs Initial Vital Signs: Vital Signs Pulse Rate 91 H 09/05/22 03:02 Respiratory Rate 15 09/05/22 03:02 Blood Pressure 131/79 09/05/22 03:02 Pulse Oximetry 100 09/05/22 03:02 Oxygen Delivery Method Room Air 09/05/22 03:02 GENERAL: Alert pleasant 42-year-old female HEAD: Head is atraumatic EYES EOMI, right periorbital contusion no swelling CARDIOVASCULAR: peripheral pulses in tact, cap refill <2 sec RESPIRATORY: No respiratory distress, speaks in full sentences without difficulty EXTREMITIES: Normal range of motion, no clubbing or edema. Neurovascularly intact NEUROLOGICAL: Cranial nerves II through XII grossly intact. Normal gait and speech. SKIN: Warm, dry, no petechiae, no rashes or lesions. Course Vital Signs Vital signs: Vital Signs - 8 hr 09/05/22 03:02 09/05/22 03:13 Pulse Rate 91 H 82 Respiratory Rate 15 18 Blood Pressure 131/79 131/79 Pulse Oximetry 100 100 Oxygen Delivery Method Room Air Room Air MDM - Headache MDM Narrative Medical decision making narrative: Patient is a 42-year-old female history of syncopal episode 1 week ago. Sounds as though she stood up too quickly and passed out, which happens to her. Since then she is not had any numbness tingling weakness nausea vomiting she has had a minor headache. No focal deficits. She likely has a concussion syndrome. No need for head CT at this time. She really just wants to make sure she is okay for surgery in the next day. Discharge Plan Departure Patient Disposition: Home Clinical Impression: Concussion syndrome Activity Restrictions/Additional Instructions: *You have been diagnosed with concussion syndrome *What to do: At this time you know concerning symptoms, you fell 1 week go. You likely have a minor concussion. *Continue to take medications as directed *Follow up with your primary care provider in 2-3 days or call [phone] *Return to ER if you should have worsening headache nausea vomiting weakness numbness tingling or any new, worsening or concerning symptoms Prescriptions: No Action omeprazole 20 mg tablet,delayed release (DR/EC) 20 mg PO DAILY pantoprazole [Protonix] 40 mg tablet,delayed release (DR/EC) 40 mg PO DAILY Qty: 30 0RF ondansetron 4 mg tablet,disintegrating 4 mg PO TID-QID PRN (Reason: nausea and vomiting) Qty: 10 0RF Referrals: Jonathan Tony MD [Primary Care Provider] - Stand Alone Forms: Patient Portal/API
[2022-09-05 03:02] VITALS: BP 131/79; PULSE 91; RESP 15; O2SAT 100; BMI 24.7
[2022-09-05 03:13] VITALS: BP 131/79; PULSE 82; RESP 18; O2SAT 100
== END 2022-09-05 03:13 | disposition home or self-care (01) ==
PROVIDERS: Emergency Provider Emergency Medicine; Family Provider Student in an Organized Health Care Education/Training Program; PCP Student in an Organized Health Care Education/Training Program
DX: G44.319 Acute post-traumatic headache, not intractable (principal); F07.81 Postconcussional syndrome
CPT/HCPCS: 99281

== ENCOUNTER 2022-09-06 06:34 | Day surgery (SDC) | payer OTHER, MEDICAID, SELFPAY ==
[2022-08-31 09:54] VITALS: BMI 25.0
[2022-09-06 07:17] VITALS: BMI 25.0
[2022-09-06 07:26] VITALS: BP 96/66; PULSE 82; RESP 16; TEMP 36.1; O2SAT 100
[2022-09-06] MEDS: LACTATED RINGERS 1,000 ML 120 ML IV (07:30)
--- NOTE | 2022-09-06 07:46 | PM.HP.1 ---
History of Present Illness History of Present Illness Date Patient Seen: 09/06/22 Time Patient Seen: 07:46 [place] [facility] [place] is here for her epigastric hernia repair. See office note from July for details. She has had more syncopal episodes recently. She went to the ER last night but no further investigations were felt to be necessary. [facility] Medical History Herpes simplex type 1 infection Onychomycosis Tremor of both hands Surgical History Anesthesia Status post dilation and curettage (~1997) Status post tubal ligation (01/26/09) Social History household members: family Smoking Status: Current every day smoker alcohol intake: current Meds Home Medications and Allergies Home Medications Medication Instructions Recorded Confirmed Type omeprazole 20 mg tablet,delayed 20 mg PO DAILY 07/05/22 09/06/22 History release ondansetron 4 mg disintegrating 4 mg PO TID-QID PRN nausea and 07/12/22 09/06/22 Rx tablet vomiting #10 tabs amitriptyline 25 mg tablet 25 mg PO 3XD 09/06/22 History Allergies Allergy/AdvReac Type Severity Reaction Status Date / Time No Known Drug Allergies Allergy Verified 09/06/22 07:12 Exam Vital Signs (past 8 hours): - 09/06/22 07:26 Temperature 97.0 F L Pulse Rate 82 Respiratory Rate 16 Blood Pressure 96/66 Pulse Oximetry 100 Oxygen Delivery Method Room Air Oxygen Delivery Method Room Air Narrative Exam Narrative: Epigastric hernia about 2 cm superior and to the left of the umbilicus Assessment & Plan Assessment and plan (1) Epigastric hernia: Status: Acute Plan Plan to proceed with epigastric ventral hernia repair with mesh
[2022-09-06] MEDS: CEFAZOLIN 2 GM/100 ML PREMIX 100 ML IV (07:59)
--- NOTE | 2022-09-06 08:06 | SUR.OPER ---
Supine on padded OR bed, head on pillow, arms secured on padded arm boards at <90 degrees abduction, legs uncrossed, safety belt at thigh, tape over blanket over lower legs.
[2022-09-06] MEDS: BUPIVACAINE 0.5% (PF) 30 ML, EPINEPHrine 0.15 MG INJ (08:34)
[2022-09-06 08:47] VITALS: BP 109/72; PULSE 93; RESP 15; TEMP 36.2; O2SAT 99
[2022-09-06 08:52] VITALS: BP 109/71; PULSE 96; RESP 20; O2SAT 99
[2022-09-06 08:57] VITALS: BP 107/73; PULSE 77; RESP 19; O2SAT 99
--- NOTE | 2022-09-06 08:57 | PM.OP.1 ---
Operative Date/Time/Diagnoses Date of procedure: 09/06/22 Time of procedure: 08:58 Pre-op diagnosis: Epigastric hernia Post-op diagnosis: same Procedure & Clinicians Procedure: Open epigastric hernia repair with mesh Same procedure as scheduled: Yes Surgeon: Delmer Marquez Operative Notes Procedure in detail: Ancef was administered. The patient was brought to the operating room, placed on the table in the supine position and general anesthesia was induced with LMA. The abdomen was prepped and draped in the usual fashion. A time-out was performed. A 5 cm incision was made just above the umbilicus. Dissection was carried down to the hernia. Some preperitoneal fat was amputated and stump was allowed to drop back into the abdomen. Fascial defect was less than 1 cm. The fascia was then closed using a single 0 Ethibond sutures. The subcutaneous adipose tissue was cleared off of the anterior sheath circumferentially about 2 cm in each direction. A piece of polypropylene mesh was trimmed to fit over the fascial closure and secured with Tisseel. Once the Tisseel was dried the subcutaneous adipose tissue was closed with interrupted 3-0 Vicryl sutures. The skin was closed with multiple interrupted 3-0 Vicryl dermal sutures followed by a running 4 Monocryl subcuticular closure. Steri-Strips were applied and an abdominal binder was applied. Post-operative Condition: stable Disposition: PACU
--- NOTE | 2022-09-06 09:01 | SUR.PHASEI ---
Bruising around right eye. Patient reported falling, I got dizzy. Denied anyone pushing or hurting her. She agreed that she was safe in her home.
[2022-09-06 09:03] VITALS: BP 108/69; PULSE 79; RESP 18; TEMP 36.2
[2022-09-06 09:07] VITALS: BP 105/70; PULSE 80; RESP 13; O2SAT 100
== END 2022-09-06 09:31 | disposition home or self-care (01) ==
PROVIDERS: Family Provider Student in an Organized Health Care Education/Training Program; PCP Student in an Organized Health Care Education/Training Program; Referring Provider Surgery; Visit Provider Surgery
PROC: (CPT 49591; principal; 2022-09-06 07:45)
DX: K43.9 Ventral hernia without obstruction or gangrene (principal)
CPT/HCPCS: 49591; J0171; J0690; J1100; J1885; J2250; J2405; J2704; J3010

== ENCOUNTER → 2023-05-20 10:28 | Outpatient (CLI) | payer OTHER, MEDICAID, SELFPAY ==
--- NOTE | 2023-05-20 | DI.MG.S_ITS ---
BILATERAL DIGITAL SCREENING MAMMOGRAM 3D/2D WITH CAD: 05/20/2023 CLINICAL: Routine screening. Family history of breast cancer. Comparison is made to exam dated: 04/21/2022 mammogram - [facility]. Both breasts are heterogeneously dense, which may obscure small masses (category c / 51-75% glandular tissue). Current study was also evaluated with a Computer Aided Detection (CAD) system. There is a focal asymmetry in the left breast at 6 o'clock middle depth. No other significant masses, calcifications, or other findings are seen in either breast. IMPRESSION: INCOMPLETE: NEEDS ADDITIONAL IMAGING EVALUATION The focal asymmetry in the left breast is indeterminate. Additional views with possible ultrasound are recommended. Based on the Tyrer Cuzick model (a risk assessment model) the patient's lifetime risk is 9.5% and her 10 year risk is 1.3%. According to the ACR, ACS, and NCCN guidelines, an annual breast MRI exam along with mammogram is recommended if the patient's lifetime risk is 20% or greater. This exam was interpreted at Station ID: [id number]. NOTE: For mammograms, a report in lay terms will be sent to the patient. Approximately 15% of breast malignancies will not be visualized mammographically. In the management of a palpable breast mass, a negative mammogram must not discourage biopsy of a clinically suspicious lesion. Electronically Signed By: Loyda strickland/dino:05/22/2023 13:12:09 letter sent: Additional Imaging Needed ACR BI-RADS Category 0: Incomplete 3340F
== END ==
LOC: MAMMO 10:28
PROVIDERS: Family Provider Student in an Organized Health Care Education/Training Program; PCP Family Medicine; Referring Provider Family Medicine; Visit Provider Family Medicine
DX: Z12.31 Encounter for screening mammogram for malignant neoplasm of breast (principal); Z80.3 Family history of malignant neoplasm of breast; R92.333 Mammographic heterogeneous density, bilateral breasts
CPT/HCPCS: 77063; 77067

== ENCOUNTER → 2023-06-02 15:58 | Outpatient (CLI) | payer OTHER, MEDICAID, SELFPAY ==
--- NOTE | 2023-06-02 16:01 | DI.RAD.S_ITS ---
PROCEDURE: XR SHOULDER RT MIN 2V INDICATIONS: Right shoulder pain with numbness and tingling TECHNIQUE: 3 views of the shoulder were acquired. COMPARISON: None. FINDINGS: Bones: No fractures or dislocations. No suspicious bony lesions. Visualized ribs appear intact. Soft tissues: No suspicious soft tissue calcifications. IMPRESSION: No definite radiographic abnormality. If pain persists with conservative management, consider repeat plain films or cross sectional imaging such as CT or MRI for further assessment. Dictated by: Edvin MUHAMMAD Interpreted: Sheldon Morales MD on 06/02/2023 at 16:30 Transcribed by: MICHELLE on 06/02/2023 at 16:31 Approved by: Sheldon Morales M.D. on 06/02/2023 at 16:41
--- NOTE | 2023-06-02 16:01 | DI.RAD.S_ITS ---
PROCEDURE: XR KNEE LT 3V INDICATIONS: left knee pain TECHNIQUE: 3 views of the knee were acquired. COMPARISON: None. FINDINGS: Bones: No fractures or dislocations. No suspicious bony lesions. Soft tissues: Small joint effusion. No suspicious soft tissue calcifications. IMPRESSION: Small joint effusion; otherwise no definite radiographic abnormality. If pain persists with conservative management, consider repeat plain films or cross sectional imaging such as CT or MRI for further assessment. Dictated by: Edvin Vale [facility] Interpreted: Sheldon Morales MD on 06/02/2023 at 16:30 Transcribed by: MICHELLE on 06/02/2023 at 16:30 Approved by: Sehldon Morales M.D. on 06/02/2023 at 16:40
--- NOTE | 2023-06-02 16:01 | DI.RAD.S_ITS ---
PROCEDURE: XR HIP W PEL IF DONE LT 2V INDICATIONS: left hip pain TECHNIQUE: AP pelvis with lateral view(s) of the left hip(s). COMPARISON: [facility], CT, CT ABDOMEN PELVIS WITH CONTRAST, 01/08/2023, 15:52. FINDINGS: Bones: No fractures or dislocations. Pelvic ring appears intact. No suspicious bony lesions. Soft tissues: The visualized bowel gas pattern is normal. No suspicious soft tissue calcifications. IMPRESSION: No definite radiographic abnormality. If pain persists with conservative management, consider repeat plain films or cross sectional imaging such as CT or MRI for further assessment. Dictated by: Edvin Vale [facility] Interpreted: Sheldon Morales MD on 06/02/2023 at 16:29 Transcribed by: MICHELLE on 06/02/2023 at 16:29 Approved by: Sheldon Morales M.D. on 06/02/2023 at 16:40
== END ==
PROVIDERS: Family Provider Student in an Organized Health Care Education/Training Program; PCP Family Medicine; Referring Provider Nurse Practitioner Family; Visit Provider Nurse Practitioner Family
DX: M25.462 Effusion, left knee (principal); M25.552 Pain in left hip; M25.562 Pain in left knee; M25.819 Other specified joint disorders, unspecified shoulder
CPT/HCPCS: 73030; 73502; 73562

== ENCOUNTER → 2023-08-07 10:01 | Outpatient (CLI) | payer OTHER, MEDICAID, SELFPAY ==
--- NOTE | 2023-08-07 10:03 | DI.MG.S_ITS ---
UNILATERAL LEFT DIGITAL DIAGNOSTIC MAMMOGRAM 3D/2D WITH ADDITIONAL VIEWS: 08/07/2023 CLINICAL: Additional evaluation requested from prior study. New Left breast lump. Comparison is made to exams dated: 05/20/2023 mammogram and 04/21/2022 mammogram - [facility]. The left breast is heterogeneously dense, which may obscure small masses (category c / 51-75% glandular tissue). There is a focal asymmetry in the left breast at 7 o'clock middle depth. This is seen in additional views. No other significant masses or calcifications are seen in the breast. IMPRESSION: INCOMPLETE: NEEDS ADDITIONAL IMAGING EVALUATION The focal asymmetry in the left breast is indeterminate. A targeted ultrasound of the left breast is recommended and will be performed immediately following this exam. Based on the Tyrer Cuzick model (a risk assessment model) the patient's lifetime risk is 9.4% and her 10 year risk is 1.4%. According to the ACR, ACS, and NCCN guidelines, an annual breast MRI exam along with mammogram is recommended if the patient's lifetime risk is 20% or greater. This exam was interpreted at Station ID: [id number]. NOTE: For mammograms, a report in lay terms will be sent to the patient. Approximately 15% of breast malignancies will not be visualized mammographically. In the management of a palpable breast mass, a negative mammogram must not discourage biopsy of a clinically suspicious lesion. Electronically Signed By: Loyda Najera M.D. lk/:08/07/2023 11:37:15 ACR BI-RADS Category 0: Incomplete 3340F
--- NOTE | 2023-08-07 10:03 | DI.US.S_ITS ---
LIMITED ULTRASOUND OF LEFT BREAST: 08/07/2023 CLINICAL: Patient returns today to evaluate focal asymmetries in the left breast. Comparison is made to exams dated: 08/07/2023 mammogram, 05/20/2023 mammogram, and 04/21/2022 mammogram - [facility]. Color flow and real-time ultrasound of the left breast 8 o'clock region were performed on the areas of interest. Crawford scale images of the real-time examination were reviewed. There is a cluster of complicated cysts in the left breast at 8 o'clock middle depth. This correlates with mammography findings. Color flow imaging demonstrates that there is no vascularity present. IMPRESSION: PROBABLY BENIGN The cluster of complicated cysts in the left breast is probably benign. A follow-up mammogram and an ultrasound in 6 months is recommended to demonstrate stability. This exam was interpreted at Station ID: [id number]. Electronically Signed By: Loyda strickland/:08/07/2023 11:38:41 letter sent: Followup Recommended Ultrasound BI-RADS: 3 Probably benign
== END ==
PROVIDERS: Family Provider Student in an Organized Health Care Education/Training Program; PCP Family Medicine; Referring Provider Family Medicine; Visit Provider Family Medicine
DX: R92.8 Other abnormal and inconclusive findings on diagnostic imaging of breast; N60.02 Solitary cyst of left breast; R92.332 Mammographic heterogeneous density, left breast
CPT/HCPCS: 76642; 77065; G0279

== ENCOUNTER 2024-02-05 02:09 | Emergency (ER) | payer OTHER, MEDICAID, SELFPAY ==
[2024-02-05 02:18] VITALS: BP 166/102; PULSE 81; RESP 16; TEMP 37.1; O2SAT 98; BMI 28.3
--- NOTE | 2024-02-05 02:27 | ED.ABDPAIN ---
HPI - Abdominal Pain General Chief Complaint: Dental/Oral Stated Complaint: toothache rt side, head hurting can't keep food do Time Seen by Provider: 02/05/24 02:20 Source: patient Mode of arrival: Ambulatory History of Present Illness HPI narrative: Patient is a 43-year-old female without significant past medical history presenting today with toothache. Reports that she is having right lower jaw and dental pain. However today she is thrown up 4 times unable to keep any ibuprofen down. No significant swelling or fever. She does have some chronic right-sided abdominal pain but she says this is a little bit different. No chest pain. Related Data Home Medications Medication Instructions Recorded Confirmed amitriptyline 25 mg tablet 25 mg PO 3XD 09/06/22 08/16/23 Previous Rx's Medication Instructions Recorded ondansetron 4 mg disintegrating 4 mg PO TID-QID PRN nausea and 07/12/22 tablet vomiting #10 tabs amoxicillin 500 mg capsule 500 mg PO BID #14 caps 02/05/24 ondansetron 4 mg disintegrating 4 mg PO Q8H PRN nausea and 02/05/24 tablet vomiting #10 tabs Allergies Allergy/AdvReac Type Severity Reaction Status Date / Time No Known Drug Allergies Allergy Verified 08/16/23 16:28 Patient History Medical History (Updated 02/05/24 @ 03:17 by Elizabeth Burrows DO) Atypical nevus of back Cyst of left breast Strain of left hip Strain of right rotator cuff capsule GERD (gastroesophageal reflux disease) Dysuria Left hip pain Herpes simplex type 1 infection Onychomycosis Tremor of both hands Surgical History Anesthesia Status post dilation and curettage (~1997) Status post tubal ligation (01/26/09) Social History household members: family Smoking Status: Current every day smoker alcohol intake: current Smoking Status: Current every day smoker tobacco type: cigarettes alcohol intake frequency: holidays/special occasions only Substance Use Type: marijuana and other Exam Initial Vital Signs Initial Vital Signs: Vital Signs Temperature 98.8 F 02/05/24 02:18 Pulse Rate 81 02/05/24 02:18 Respiratory Rate 16 02/05/24 02:18 Blood Pressure 166/102 H 02/05/24 02:18 Pulse Oximetry 98 02/05/24 02:18 Oxygen Delivery Method Room Air 02/05/24 02:18 GENERAL: Alert 43-year-old female and in [no acute] distress. HEENT: Head atraumatic,EOMI, pupils reactive, no facial swelling MOTH: No obvious dental cavity or carry, no dental abscess CARDIOVASCULAR: Regular rate and rhythm without murmurs, rubs or gallops. RESPIRATORY: Breath sounds equal bilaterally, no wheezes rales or rhonchi. ABDOMEN: Soft, mild epigastric pain minimal right upper quadrant pain EXTREMITIES: Normal range of motion, no clubbing or edema. Neurovascularly intact NEUROLOGICAL: Alert and oriented x4.Normal gait and speech. Cranial nerves II through XII grossly intact. SKIN: Warm, dry, no laceration, no petechiae, no rashes or lesions. Course Orders Ordered: ED Orders 02/05/24 02:30 CBC Auto Diff [Complete Blood Count AUTO DIFF] Stat CMP [Comprehensive Metabolic Panel] Stat Lipase Stat Discontinued Medications Amoxicillin (Amoxicillin 250 Mg Capsule) 500 mg PO NOW ONE Stop: 02/05/24 03:15 Last Admin: 02/05/24 03:21 Dose: 500 mg Documented By: NIYAH Ketorolac Tromethamine (Ketorolac 30 Mg/Ml Vial) 15 mg IV NOW ONE Stop: 02/05/24 02:27 Last Admin: 02/05/24 02:33 Dose: 15 mg Documented By: REAGAN Ondansetron HCl (Ondansetron 4 Mg/2 Ml Inj) 4 mg IV NOW ONE Stop: 02/05/24 02:27 Last Admin: 02/05/24 02:33 Dose: 4 mg Documented By: REAGAN Ondansetron HCl (Ondansetron 4 Mg Odt Prepack) 1 bottle MISC NOW ONE Stop: 02/05/24 03:15 Vital Signs Vital signs: Vital Signs - 8 hr 02/05/24 02:18 02/05/24 02:39 02/05/24 02:39 Temperature 98.8 F Pulse Rate 81 70 68 Respiratory Rate 16 16 Blood Pressure 166/102 H 155/84 H Pulse Oximetry 98 97 99 Oxygen Delivery Method Room Air Room Air 02/05/24 03:00 02/05/24 03:00 Temperature Pulse Rate 67 Respiratory Rate 16 Blood Pressure 163/104 H Pulse Oximetry 100 Oxygen Delivery Method MDM - Abdominal Pain Lab Data 02/05/24 02:30 02/05/24 02:30 Labs: Lab Results 02/05/24 Range/Units 02:30 WBC 7.5 (4.5-11.0) X10^3/uL RBC 4.32 (4.0-5.2) X10^6/uL Hgb 13.9 (12.0-16.0) g/dL Hct 40.3 (36-46) % MCV 93.2 (80-100) fL MCH 32.1 (26-34) PG MCHC 34.5 (30-36) % RDW 14.1 (11.6-14.8) % Plt Count 275 (150-400) X10^3/uL Neut % (Auto) 59.7 (50-75) % Lymph % (Auto) 31.6 (25-40) % [place] % (Auto) 7.2 (3-14) % Eos % (Auto) 0.7 L (2-4) % Baso % (Auto) 0.8 (0-2) % Neut # (Auto) 4500 (5787-0449) /uL Lymph # (Auto) 2400 (0607-6572) /uL [place] # (Auto) 500 (0-900) /uL Eos # (Auto) 0 (0-450) /uL Baso # (Auto) 100 (0-100) /uL Sodium 135 L (137-145) mmol/L Potassium 4.0 (3.4-5.1) mmol/L Chloride 107 (98-107) mmol/L Carbon Dioxide 22 (22-32) mmol/L BUN 9 (7-17) mg/dL Creatinine 0.72 (0.52-1.04) mg/dL Estimated GFR > 60 (>60) mL/min BUN/Creatinine Ratio 12.5 (6-22) Glucose 96 (70-100) mg/dL Calcium 9.1 (8.4-10.2) mg/dL Total Bilirubin 0.5 (0.2-1.3) mg/dL AST 25 (14-36) IU/L ALT 15 (<35) IU/L Alkaline Phosphatase 57 (38-126) U/L Total Protein 7.2 (6.3-8.2) g/dL Albumin 4.1 (3.5-5.0) g/dL Globulin 3.1 (1.7-4.1) g/dL Albumin/Globulin Ratio 1.3 (1.0-2.8) Lipase 37 (23-300) U/L MDM Narrative Medical decision making narrative: Patient 43-year-old female presents today with dental pain and nausea vomiting. She has no evidence of dental abscess no facial swelling or erythema she is afebrile. She has had a couple episodes of nausea vomiting today. She is mildly tender in her epigastric region no real Shah's sign Work has been reviewed overall reassuring she has no leukocytosis no electrolyte abnormality no KHOA. Bilirubin and liver enzymes within normal limits She has been given Zofran which has helped significantly. At this time I think reasonable to give her Zofran and amoxicillin. No sign of sepsis recommend returning for further evaluation and workup if symptoms. Discharge Plan Departure Patient Disposition: Home Clinical Impression: Pain, dental Instructions: DI for Dental Pain Activity Restrictions/Additional Instructions: *You have been diagnosed with dental pain *What to do: At this time hopefully antibiotics we will start helping your dental pain. You do need to get into see a dentist *Continue to take medications as directed Amoxicillin 500 mg twice a day for 7 days Zofran 4 mg every 8 hours if needed for nausea or vomiting *Follow up with your primary care provider in 2-3 days or call [phone] *Return to ER if you should have increasing dental pain facial swelling fever persistent vomiting abdominal pain or any new, worsening or concerning symptoms Prescriptions: New amoxicillin 500 mg capsule 500 mg PO BID Qty: 14 0RF ondansetron 4 mg tablet,disintegrating 4 mg PO Q8H PRN (Reason: nausea and vomiting) Qty: 10 0RF No Action ondansetron 4 mg tablet,disintegrating 4 mg PO TID-QID PRN (Reason: nausea and vomiting) Qty: 10 0RF amitriptyline 25 mg tablet 25 mg PO 3XD Referrals: Juan José Stuart DO [Primary Care Provider] - Stand Alone Forms: Patient Portal/API
[2024-02-05] MEDS: ONDANSETRON 4 MG/2 ML INJ IV (02:33)
[2024-02-05] MEDS: KETOROLAC 30 MG/ML VIAL 15 MG IV (02:33)
[2024-02-05 02:39] VITALS: BP 155/84; PULSE 68; PULSE 70; RESP 16; O2SAT 97; O2SAT 99
[2024-02-05 02:48] LABS: Alanine Aminotransferase 15 IU/L (<35); Albumin 4.1 g/dL (3.5-5.0); Albumin Globulin Ratio 1.3 (1.0-2.8); Alkaline Phosphatase 57 U/L (38-126); Aspartate Aminotransferase 25 IU/L (14-36); BUN Creatinine Ratio 12.5 (6-22); Bilirubin Total 0.5 mg/dL (0.2-1.3); Blood Urea Nitrogen 9 mg/dL (7-17); Calcium 9.1 mg/dL (8.4-10.2); Carbon Dioxide 22 mmol/L (22-32); Chloride 107 mmol/L (98-107); Estimated Glomerular Filt Rate > 60 mL/min (>60); Globulin 3.1 g/dL (1.7-4.1); Glucose 96 mg/dL (70-100); HEMOLYSIS < 15 (0-50); Lipase 37 U/L (23-300); Sodium 135 mmol/L (137-145); Total Protein 7.2 g/dL (6.3-8.2)
[2024-02-05 02:49] LABS: Add Manual Diff / Slide Review NO; Basophils Absolute Auto 100 /uL (0-100); Basophils Percent Auto 0.8 % (0-2); Eosinophils Absolute Auto 0 /uL (0-450); Eosinophils Percent Auto 0.7 % (2-4); Hematocrit 40.3 % (36-46); Hemoglobin 13.9 g/dL (12.0-16.0); Lymphocytes Absolute Auto 2400 /uL (1100-4500); Lymphocytes Percent Auto 31.6 % (25-40); Mean Corpuscular HGB Conc 34.5 % (30-36); Mean Corpuscular Hemoglobin 32.1 PG (26-34); Mean Corpuscular Volume 93.2 fL (80-100); Monocytes Absolute Auto 500 /uL (0-900); Monocytes Percent Auto 7.2 % (3-14); Neutrophils Absolute Auto 4500 /uL (1500-7000); Neutrophils Percent Auto 59.7 % (50-75); Platelet Count 275 X10^3/uL (150-400); Red Blood Cell Count 4.32 X10^6/uL (4.0-5.2); Red Cell Distribution Width 14.1 % (11.6-14.8); White Blood Cell Count 7.5 X10^3/uL (4.5-11.0)
[2024-02-05 03:00] VITALS: BP 163/104; PULSE 67; RESP 16; O2SAT 100
[2024-02-05] MEDS: AMOXICILLIN 250 MG CAPSULE 500 MG PO (03:21)
== END 2024-02-05 03:31 | disposition home or self-care (01) ==
PROVIDERS: Emergency Provider Emergency Medicine; Family Provider Student in an Organized Health Care Education/Training Program; PCP Family Medicine
DX: K08.89 Other specified disorders of teeth and supporting structures (principal)
CPT/HCPCS: 36415; 80053; 83690; 85025; 96374; 96375; 99284; J1885; J2405

== ENCOUNTER → 2024-02-21 11:48 | Outpatient (CLI) | payer OTHER, MEDICAID, SELFPAY ==
--- NOTE | 2024-02-21 11:49 | DI.US.S_ITS ---
LIMITED ULTRASOUND OF LEFT BREAST: 02/21/2024 CLINICAL: 6 month follow-up of cysts. Comparison is made to exams dated: 08/07/2023 ultrasound and 02/21/2024 mammogram - [facility]. Real-time ultrasound of the left breast 8 o'clock region was performed. Crawford scale images of the real-time examination were reviewed. There are three separate, but closely associated cystic clusters in the left breast 8:00 3 cm from the nipple. One bilobed cluster of two simple cysts measures 1.0 x 0.6 x 0.5 cm, minimally larger compared to prior. This corresponds to the mammographic finding. Another more superficial cluster of cysts with internal septatioins and adjacent vascularity has flattened in shape, but mildly elongated. A third cluster has nearly disappated. Other tiny simple cysts are in the region. IMPRESSION: PROBABLY BENIGN The multiple various size cysts in the left breast corresponds to the mammogram finding, and are probably benign. A follow-up left mammogram and an ultrasound in 6 months is recommended to demonstrate continued stability. Findings and recommendations were conveyed to the patient at time of exam. This exam was interpreted at Station ID: [id number]. Electronically Signed By: Meera hopkins/:02/21/2024 13:13:21 letter sent: Followup Recommended ACR BI-RADS Category 3: Probably Benign
--- NOTE | 2024-02-21 11:49 | DI.MG.S_ITS ---
BILATERAL DIGITAL DIAGNOSTIC MAMMOGRAM 3D/2D: 02/21/2024 CLINICAL: Patient returns for a 6 month follow up of the left breast, due for bilateral exam. Comparison is made to exams dated: 08/07/2023 mammogram, 04/21/2022 mammogram, and 05/20/2023 mammogram - [facility]. The breasts are heterogeneously dense, which may obscure small masses (category c / 51-75% glandular tissue). There is a 1 cm bilobed focal asymmetry with a circumscribed margin in the left breast at 7 o'clock posterior depth. This is seen in additional views. This is more prominent and has slightly increased in size. There is slight architectural distortion associated with the focal asymmetry. No other significant masses, calcifications, or other findings are seen in either breast. Mammograms are otherwise stable. IMPRESSION: INCOMPLETE: NEED ADDITIONAL IMAGING EVALUATION Right breast mammogram is stable. Left breast bilobed asymmetry previously seen to be a complicated cyst cluster is more prominent. An ultrasound is recommended to confirm stability. Ultrasound is recommended for full evaluation of this area. Left mammogram is otherwise stable. Based on the Tyrer Cuzick model (a risk assessment model) the patient's lifetime risk is 9.4% and her 10 year risk is 1.4%. According to the ACR, ACS, and NCCN guidelines, an annual breast MRI exam along with mammogram is recommended if the patient's lifetime risk is 20% or greater. This exam was interpreted at Station ID: [id number]. NOTE: For mammograms, a report in lay terms will be sent to the patient. Approximately 15% of breast malignancies will not be visualized mammographically. In the management of a palpable breast mass, a negative mammogram must not discourage biopsy of a clinically suspicious lesion. Electronically Signed By: Meera hopkins/:02/21/2024 12:47:34 letter sent: Additional Imaging Needed ACR BI-RADS Category 0: Incomplete: Need Additional Imaging Evaluation
== END ==
PROVIDERS: Family Provider Student in an Organized Health Care Education/Training Program; PCP Family Medicine; Referring Provider Family Medicine; Visit Provider Family Medicine
DX: N63.0 Unspecified lump in unspecified breast (principal); N60.02 Solitary cyst of left breast; R92.8 Other abnormal and inconclusive findings on diagnostic imaging of breast; R92.333 Mammographic heterogeneous density, bilateral breasts
CPT/HCPCS: 76642; 77066; G0279

== ENCOUNTER → 2024-07-24 13:18 | Outpatient (CLI) | payer OTHER, SELFPAY ==
--- NOTE | 2024-07-24 13:19 | DI.MG.S_ITS ---
US breast LT limited, MM diagnostic mammo unilat LT: 07/24/2024 BI-RADS: 3 CLINICAL: 43-year old female for left diagnostic mammogram and left diagnostic breast ultrasound that is a follow-up to ultrasound, left on 02/21/2024[facility]%. No personal or first-degree family history of breast cancer. PRIOR EXAMS 02/21/2024, 08/07/2023, 05/20/2023, 04/21/2022. MAMMOGRAPHY TECHNIQUE: 2D and 3D (tomosynthesis) digital mammographic views obtained, with additional images as needed for full coverage. Current study was also evaluated with a Computer Aided Detection (CAD) system. ULTRASOUND TECHNIQUE Real-time ross scale and color doppler imaging of the area of clinical interest was performed with image documentation. Left targeted breast ultrasound of the area of clinical interest and the axilla was performed with image documentation. DENSITY Left: C. The breasts are heterogeneously dense, which may obscure small masses. MAMMOGRAPHY FINDINGS Left (finding-1): Lower Inner Quadrant, Middle depth, measuring 1 cm: There is a stable focal asymmetry present that is unchanged in size and appearance. ULTRASOUND FINDINGS Left (finding-1): Lower Inner at 7:00, 2 cm from nipple, measuring 1 x 0.5 x 0.5 cm, previously measuring 1 x 0.6 x 0.5 cm: Correlating with findings on mammogram there is a cluster of macrocysts present. This was previously reported as 8:00, 3 cm from the nipple on prior ultrasound. Left: Lower Inner at 8:00, 3 cm from nipple, measuring 1 x 0.4 x 0.8 cm, previously measuring 1.2 x 0.3 x 0.9 cm: There is a cluster of microcysts that are unchanged in size and appearance. IMPRESSION: Left (Simple Cyst): Lower Inner at 7:00, 2 cm from nipple, measuring 1 x 0.5 x 0.5 cm, previously measuring 1 x 0.6 x 0.5 cm * Probably Benign. RECOMMENDATIONS Left: Lower Inner at 7:00, 2 cm from nipple * Six month followup with diagnostic mammography and diagnostic ultrasound. When the patient returns for short-term unilateral followup, a bilateral screening mammogram will also be due. COMMENTS: The patient was initially advised at the time of this exam to return in 1 year for follow up given that this finding has been stable on imaging since 08/07/2023. However, since the patient is also due back for screening of the contralateral breast in January (last screening mammogram on record is from 02/21/2024), the recommendation is now revised to return in 6 months (January 2025) for follow up of the left breast. OVERALL ASSESSMENT CATEGORY BI-RADS-3: Probably Benign. ELECTRONICALLY SIGNED: Eveline Herrera M.D. on 07/24/2024 at 03:36:14 PM PT Interpreting Station ID: [id number]
== END ==
PROVIDERS: PCP Family Medicine; Referring Provider Family Medicine; Visit Provider Family Medicine
DX: R92.8 Other abnormal and inconclusive findings on diagnostic imaging of breast (principal); R92.332 Mammographic heterogeneous density, left breast; N60.02 Solitary cyst of left breast
CPT/HCPCS: 76642; 77065; G0279